=== PATIENT | female | born 1960 | race African-American/Black ===

== ENCOUNTER 2020-07-01 09:33 | Observation (INO) ==
[2020-07-01] MEDS ORDERED: ONDANSETRON INJ 2 MG/ML 2 ML VIAL IV STA (09:58)
[2020-07-01] MEDS ORDERED: SODIUM CHLORIDE 0.9% 1000ML 1,000 ML IV ONE ×2 (09:58→11:57)
[2020-07-01] MEDS ORDERED: LORazepam 1 MG/2 ML VIAL IV STA (09:58)
--- NOTE | 2020-07-01 10:02 | Emergency Department Note ---
History of Present Illness General Chief complaint: Shortness of Breath/Dyspnea Stated complaint: COVID POSITIVE SINCE MAY 23 / Time Seen by Provider: 07/01/20 09:49 History of Present Illness Provider complaint: Difficulty breathing Onset (ago): month(s) 1 Associated symptoms: + cough, + fever/chills, + nausea/vomiting (Nausea no vomiting), + shortness of breath and + weakness 5-year-old female presents emergency department for difficulty breathing. Patient states her difficulty breathing has been gone for last 1 month and she was diagnosed with COVID-19. She states that she feels like she is not getting any better. She states she feels like it is difficult to take a deep breath in. She reports mild fevers but those have improved over the last month. She reports a cough. She reports feeling nauseous. She reports feeling excessively weak. She reports she feels dehydrated. She states her had COVID-19 at the same time as her but he has made a full recovery. Patient did states she to ok a full course of Decadron and azithromycin to help with her Covid. Home Medications Medication Instructions Recorded Confirmed Type albuterol sulfate 2 puffs INH 6XD PRN #6.7 gm 05/30/20 07/01/20 Rx ascorbic acid (vitamin C) [Vitamin 25 mg PO DAILY 05/30/20 07/01/20 History C] ergocalciferol (vitamin D2) 10 mcg PO DAILY 05/30/20 07/01/20 History [Vitamin D2] multivitamin 1 cap PO DAILY 05/30/20 07/01/20 History naproxen sodium [Aleve] 220 mg PO BID PRN 05/30/20 07/01/20 History zinc 10 mg PO DAILY 05/30/20 07/01/20 History Allergies Allergy/AdvReac Type Severity Reaction Status Date / Time No Known Allergies Allergy Verified 07/01/20 10:19 Past Med/Surg History Medical History (Updated 07/01/20 @ 16:37 by Kraig Espinoza) COVID-19 05/2020 No pertinent family history Surgical History No pertinent past surgical history Family History Sister Diabetes had gestational DM, then type 1 Father , in his 70s Heart disease Mother Pacemaker Social History (Updated 07/01/20 @ 12:38 by Santos Grace) Smoking Status: Never smoker Hx Alcohol Use: No Hx Substance Use: No Preferred Language: [place] Communication Ability: Effective Tour Escort Required: Yes and No Beliefs That Will Affect Care: None marital status: Current Living Situation: Spouse current occupational status: retired current occupation: [employer] Director [employer] How many Children do You have: 4 Other Information That Helps Us Care for You: No other: originally from [place]; came to [facility] in 1986 Feels Safe at Home: Yes Safety Concerns: Feels Safe At This Time Assistive Devices: Glasses Review of Systems A total of 10 systems reviewed and were otherwise negative Physical Exam Vital Signs Vital Signs - 24 hr 07/01/20 09:41 07/01/20 09:43 07/01/20 09:45 Temperature Temperature Source Pulse Rate 108 H 108 H 109 H Pulse Rate from SpO2 Sensor 107 H Pulse Rhythm Pulse Strength Respiratory Rate 22 23 20 Respiratory Effort / Characteristics Respiratory Depth Respiratory Pattern Blood Pressure 199/103 H Blood Pressure Mean 135 Pulse Oximetry 100 100 100 Oxygen Delivery Method Sepsis Recent Fever Within 48 Hours Sepsis New/Unexplained Change in Mental Status Sepsis Action Taken by Nursing 07/01/20 09:48 07/01/20 10:00 07/01/20 10:15 Temperature 36.7 C Temperature Source Oral Pulse Rate 104 H 102 H 94 H Pulse Rate from SpO2 Sensor 104 H Pulse Rhythm Regular Regular Pulse Strength Normal Respiratory Rate 30 H 20 20 Respiratory Effort / Characteristics Spontaneous Short of Breath Non-Labored Spontaneous Respiratory Depth Shallow Respiratory Pattern Rapid/Shallow Blood Pressure 199/103 H 154/99 H Blood Pressure Mean 135 117 Pulse Oximetry 99 100 100 Oxygen Delivery Method Room Air Room Air Room Air Sepsis Recent Fever Within 48 Hours No Sepsis New/Unexplained Change in Mental Status N/A Sepsis Action Taken by Nursing Physician Notified 07/01/20 10:30 07/01/20 10:31 07/01/20 10:34 Temperature Temperature Source Pulse Rate 92 H 90 91 H Pulse Rate from SpO2 Sensor 92 H 90 89 Pulse Rhythm Pulse Strength Respiratory Rate 22 20 22 Respiratory Effort / Characteristics Respiratory Depth Respiratory Pattern Blood Pressure 176/94 H 164/96 H Blood Pressure Mean 121 118 Pulse Oximetry 100 100 100 Oxygen Delivery Method Sepsis Recent Fever Within 48 Hours Sepsis New/Unexplained Change in Mental Status Sepsis Action Taken by Nursing 07/01/20 10:35 07/01/20 10:45 07/01/20 11:00 Temperature Temperature Source Pulse Rate 87 88 86 Pulse Rate from SpO2 Sensor 89 88 Pulse Rhythm Pulse Strength Respiratory Rate 22 22 22 Respiratory Effort / Characteristics Respiratory Depth Respiratory Pattern Blood Pressure 123/91 Blood Pressure Mean 101 Pulse Oximetry 100 99 99 Oxygen Delivery Method Sepsis Recent Fever Within 48 Hours Sepsis New/Unexplained Change in Mental Status Sepsis Action Taken by Nursing 07/01/20 11:01 07/01/20 11:15 07/01/20 11:20 Temperature Temperature Source Pulse Rate 88 89 88 Pulse Rate from SpO2 Sensor Pulse Rhythm Pulse Strength Respiratory Rate 22 22 21 Respiratory Effort / Characteristics Respiratory Depth Respiratory Pattern Blood Pressure 141/75 H Blood Pressure Mean 97 Pulse Oximetry 99 99 95 Oxygen Delivery Method Sepsis Recent Fever Within 48 Hours Sepsis New/Unexplained Change in Mental Status Sepsis Action Taken by Nursing 07/01/20 11:25 07/01/20 11:30 07/01/20 11:45 Temperature Temperature Source Pulse Rate 97 H 87 Pulse Rate from SpO2 Sensor Pulse Rhythm Pulse Strength Respiratory Rate 22 17 24 Respiratory Effort / Characteristics Non-Labored Spontaneous Respiratory Depth Respiratory Pattern Blood Pressure 152/96 H Blood Pressure Mean 114 Pulse Oximetry 99 96 Oxygen Delivery Method Room Air Sepsis Recent Fever Within 48 Hours Sepsis New/Unexplained Change in Mental Status Sepsis Action Taken by Nursing 07/01/20 12:00 07/01/20 12:01 07/01/20 12:15 Temperature Temperature Source Pulse Rate 91 H 89 91 H Pulse Rate from SpO2 Sensor Pulse Rhythm Pulse Strength Respiratory Rate 23 22 22 Respiratory Effort / Characteristics Respiratory Depth Respiratory Pattern Blood Pressure 139/91 Blood Pressure Mean 107 Pulse Oximetry 96 99 99 Oxygen Delivery Method Sepsis Recent Fever Within 48 Hours Sepsis New/Unexplained Change in Mental Status Sepsis Action Taken by Nursing 07/01/20 12:30 07/01/20 13:00 Temperature Temperature Source Pulse Rate 88 90 Pulse Rate from SpO2 Sensor Pulse Rhythm Pulse Strength Respiratory Rate 22 22 Respiratory Effort / Characteristics Respiratory Depth Respiratory Pattern Blood Pressure 128/90 139/91 Blood Pressure Mean 102 107 Pulse Oximetry 99 99 Oxygen Delivery Method Sepsis Recent Fever Within 48 Hours Sepsis New/Unexplained Change in Mental Status Sepsis Action Taken by Nursing Physical Exam GENERAL: She is oriented to person, place, and time. She appears well-developed and well-nourished. She does not appear distressed. HENT: Exam performed. -Head: Normocephalic and atraumatic. -Right Ear: External ear normal. No mastoid tenderness. -Left Ear: External ear normal. No mastoid tenderness. -Mouth/Throat: The oropharynx is clear and moist. No trismus in the jaw. No dental abscesses or uvula swelling. No oropharyngeal exudate or tonsillar abscesses. EYES: Conjunctivae and EOM are normal. Pupils are equal, round, and reactive to light. Right eye exhibits no discharge. Left eye exhibits no discharge. No scleral icterus. NECK: Normal range of motion. Neck supple. No JVD present. No spinous process tenderness present. No carotid bruit present. No rigidity. No tracheal deviation and normal range of motion present. No Brudzinski's sign and no Kernig's sign noted. CV: Normal rate, regular rhythm, normal heart sounds and intact distal pulses. There is no peripheral edema. Palpable radial pulses bue. PULM/CHEST: Effort normal and breath sounds normal. No respiratory distress. No stridor. She has no wheezes. She has no rales. -Chest Wall: She exhibits no tenderness. ABD: The abdomen is soft. Bowel sounds are normal. She has no distension. No m ass is present. There is no tenderness. There is no rebound, no guarding, no Nascimento's sign and no tenderness at McBurney's point. Rovsig negative MUSC/SKEL: Normal range of motion. There is no peripheral edema, tenderness or deformity. LYMPH: No cervical adenopathy. NEURO: She is alert and oriented to person, place, and time. She has normal strength. No cranial nerve deficit or sensory deficit. Coordination and gait normal. GCS eye subscore is 4. GCS verbal subscore is 5. GCS motor subscore is 6 . Cerebellar tests wnl. SKIN: Skin is warm and dry. She is not diaphoretic. PSYCH: Patient appears very anxious and did seem to calm down when her parts person was allowed in the room. Course Course 0949: The patient was evaluated in room C5. A complete history and physical exam was performed Cardiac monitoring: An order was placed for continuous cardiac monitoring. The monitor shows a rate of 105 with sinus tachycardia rhythm 1035: Patient reports feeling better status post Ativan. 1221: Vital signs stable. Patient is reporting that she is still thirsty. Labs show leukopenia of 2.93. Patient has a blood sugar of 386. Status post 1 L fluid is and and some trouble with the patient's POC glucose was 321. Anion gap 15. Bicarb 20. Beta hydroxybutyrate 21.41. On reexamining and retalking to the patient, she reports over the last 4 weeks she has been having increasing weakness, increasing thirst, and polyuria. She reports her urine is completely clear. She reports no dysuria. It is thought that the patient's symptoms could be due to DKA. Patient has no history of diabetes. Patient be started on insulin drip and given 1 L of normal saline again with 40 mEq KCl given the patient's potassium was only 3.5. [facility] and Dr. Goetz have been notified. Administered Medications Dextrose (Dextrose 50% 50 Ml Syringe) 25 - 50 ml IV UD PRN; Protocol PRN Reason: Hypoglycemia Protocol Stop: 07/31/20 11:56 Last Admin: 07/01/20 16:33 Dose: 50 ml Documented by: Potassium Phosphate 21 mmol/ (Sodium Chloride) 507 mls @ 145 mls/hr IV ONE ONE Stop: 07/01/20 17:29 Last Admin: 07/01/20 15:15 Dose: 145 mls/hr Documented by: [id number] Discontinued Medications Lorazepam (Ativan) 1 mg in 2 mls @ 2 mls/min IV NOW STA Stop: 07/01/20 09:59 Last Admin: 07/01/20 10:17 Dose: 2 mls/min Documented by: [id number] Sodium Chloride (Nss 1000ml) 1,000 mls @ 999 mls/hr IV .Q1H1M ONE Stop: 07/01/20 10:58 Last Infusion: 07/01/20 11:17 Dose: 0 mls/hr Documented by: [id number] Admin: 07/01/20 10:16 Dose: 999 mls/hr Documented by: [id number] Sodium Chloride (Nss 1000ml) 1,000 mls @ 999 mls/hr IV .Q1H1M ONE Stop: 07/01/20 12:57 Last Infusion: 07/01/20 14:05 Dose: 0 mls/hr Documented by: [id number] Admin: 07/01/20 13:04 Dose: 999 mls/hr Documented by: [id number] Insulin Human Regular 250 (units/ Sodium Chloride) 250 mls @ 7.7 mls/hr IV .Q24H GLORIA; Protocol Stop: 07/31/20 11:59 Last Titration: 07/01/20 15:19 Dose: 4.6 units/hr, 4.6 mls/hr Documented by: [id number] Cosigned by: [id number] Titration: 07/01/20 14:51 Dose: 0 units/hr, 0 mls/hr Documented by: [id number] Cosigned by: [id number] Admin: 07/01/20 13:29 Dose: 7.7 units/hr, 7.7 mls/hr Documented by: [id number] Cosigned by: [id number] Potassium Chloride 40 meq/ (Sodium Chloride) 1,020 mls @ 125 mls/hr IV .Q8H10M GLORIA Stop: 07/31/20 12:29 Last Admin: 07/01/20 12:58 Dose: 125 mls/hr Documented by: [id number] Insulin Human Regular (Novolin-R Bolus From Bag) 7 units IV ONE ONE Stop: 07/01/20 12:31 Last Admin: 07/01/20 12:59 Dose: Not Given Documented by: [id number] Miscellaneous Information (Pharmacy Glycemic Mgmt Consult) 1 ea N/A NOW STA Stop: 07/01/20 13:18 Last Admin: 07/01/20 16:12 Dose: 1 ea Documented by: [id number] Ondansetron HCl (Ondansetron Inj 2 Mg/Ml 2 Ml Vial) 4 mg IV NOW STA Stop: 07/01/20 09:59 Last Admin: 07/01/20 10:17 Dose: 4 mg Documented by: [id number] Critical Care Time Critical Care Time: Yes Total Critical Care Time: 60 I have personally spent greater than 60 minutes of critical care time in the direct management of this patient. This includes bedside care, interpretation of diagnostic studies, and testing, discussion with consultants, patient, and family members, and other required patient management activities. This 60 minutes is in excess of all separately billable procedures. Medical Decision Making Laboratory Data Result diagrams: 07/01/20 10:18 07/01/20 10:18 Lab Results 07/01/20 07/01/20 07/01/20 Range/Units 10:18 10:18 10:18 WBC 2.93 L (4.8-10.8) K/uL RBC 4.79 (4.2-5.4) M/uL Hgb 15.1 (12.0-16.0) g/dL Hct 41.3 (37-47) % MCV 86.2 (80-100) fL MCH 31.5 (25-34) pg MCHC 36.6 H (32-36) g/dL RDW Std Deviation 40.9 (36.4-46.3) fL RDW Coeff of Peter 12.7 (11.5-14.5) % Plt Count 210 (130-400) K/uL MPV 11.0 H (7.4-10.4) fL Immature Gran % (Auto) 0.0 % Neut % (Auto) 59.4 % Lymph % (Auto) 34.5 % [place] % (Auto) 5.1 % Eos % (Auto) 0.7 % Baso % (Auto) 0.3 % Neut # (Auto) 1.74 (1.4-6.5) K/uL Lymph # (Auto) 1.01 L (1.2-3.4) K/uL [place] # (Auto) 0.15 (0.11-0.59) K/uL Eos # (Auto) 0.02 (0-0.5) K/uL Baso # (Auto) 0.01 (0-0.2) K/uL Immature Gran # (Auto) 0.00 (0.00-0.02) K/uL PT 10.4 (9.0-12.0) Seconds INR 1.0 (0.9-1.1) APTT 22.2 (21.0-31.0) Seconds PTT Ratio 0.8 D-Dimer 290 (0-500) ug/L FEU VBG pH (7.36-7.41) VBG pCO2 (38-50) mmHg VBG pO2 mmHg VBG HCO3 mmol/L VBG O2 Saturation % VBG Base Excess mEq/L Barometric Pressure mm/Hg Sodium 136 (136-145) mmol/L Potassium 3.5 (3.5-5.1) mmol/L Chloride 101 (98-107) mmol/L Carbon Dioxide 20 L (21-32) mmol/L Anion Gap 15.0 H (3-11) BUN 8 (7-18) mg/dl Creatinine 1.01 (0.6-1.2) mg/dl Est Cr Clr Drug Dosing 61.0 ml/min Est GFR ( Amer) 70.1 Est GFR (Non-Af Amer) 60.5 BUN/Creatinine Ratio 8.1 L (10-20) Glucose 386 H* (70-99) mg/dl POC Glucose (70-99) mg/dl Fasting Insulin (3-25) mU/L Lactate (0.4-2.0) mmol/L Calcium 9.4 (8.5-10.1) mg/dl Phosphorus (2.5-4.9) mg/dl Magnesium 1.8 (1.8-2.4) mg/dl Total Bilirubin 1.1 H (0.2-1) mg/dl AST 16 (15-37) U/L ALT 39 (12-78) U/L Alkaline Phosphatase 105 (45-117) U/L Troponin I < 0.015 (0-0.045) ng/ml NT-Pro-B Natriuret Pep 20 (0-900) pg/ml Total Protein 8.2 (6.4-8.2) gm/dl Albumin 4.1 (3.4-5.0) gm/dl Globulin 4.1 H (2.5-4.0) gm/dl Albumin/Globulin Ratio 1.0 (0.9-2) Beta-Hydroxybutyric Acd 21.41 H (0.2-2.81) mg/dl Procalcitonin (0-0.5) ng/ml 07/01/20 07/01/20 07/01/20 Range/Units 10:18 10:18 10:18 WBC (4.8-10.8) K/uL RBC (4.2-5.4) M/uL Hgb (12.0-16.0) g/dL Hct (37-47) % MCV (80-100) fL MCH (25-34) pg MCHC (32-36) g/dL RDW Std Deviation (36.4-46.3) fL RDW Coeff of Peter (11.5-14.5) % Plt Count (130-400) K/uL MPV (7.4-10.4) fL Immature Gran % (Auto) % Neut % (Auto) % Lymph % (Auto) % [place] % (Auto) % Eos % (Auto) % Baso % (Auto) % Neut # (Auto) (1.4-6.5) K/uL Lymph # (Auto) (1.2-3.4) K/uL [place] # (Auto) (0.11-0.59) K/uL Eos # (Auto) (0-0.5) K/uL Baso # (Auto) (0-0.2) K/uL Immature Gran # (Auto) (0.00-0.02) K/uL PT (9.0-12.0) Seconds INR (0.9-1.1) APTT (21.0-31.0) Seconds PTT Ratio D-Dimer (0-500) ug/L FEU VBG pH (7.36-7.41) VBG pCO2 (38-50) mmHg VBG pO2 mmHg VBG HCO3 mmol/L VBG O2 Saturation % VBG Base Excess mEq/L Barometric Pressure mm/Hg Sodium (136-145) mmol/L Potassium (3.5-5.1) mmol/L Chloride (98-107) mmol/L Carbon Dioxide (21-32) mmol/L Anion Gap (3-11) BUN (7-18) mg/dl Creatinine (0.6-1.2) mg/dl Est Cr Clr Drug Dosing ml/min Est GFR ( Amer) Est GFR (Non-Af Amer) BUN/Creatinine Ratio (10-20) Glucose (70-99) mg/dl POC Glucose (70-99) mg/dl Fasting Insulin 10.7 (3-25) mU/L Lactate (0.4-2.0) mmol/L Calcium (8.5-10.1) mg/dl Phosphorus 1.3 L* (2.5-4.9) mg/dl Magnesium (1.8-2.4) mg/dl Total Bilirubin (0.2-1) mg/dl AST (15-37) U/L ALT (12-78) U/L Alkaline Phosphatase (45-117) U/L Troponin I (0-0.045) ng/ml NT-Pro-B Natriuret Pep (0-900) pg/ml Total Protein (6.4-8.2) gm/dl Albumin (3.4-5.0) gm/dl Globulin (2.5-4.0) gm/dl Albumin/Globulin Ratio (0.9-2) Beta-Hydroxybutyric Acd (0.2-2.81) mg/dl Procalcitonin < 0.05 (0-0.5) ng/ml 07/01/20 07/01/20 07/01/20 Range/Units 11:46 11:49 13:13 WBC (4.8-10.8) K/uL RBC (4.2-5.4) M/uL Hgb (12.0-16.0) g/dL Hct (37-47) % MCV (80-100) fL MCH (25-34) pg MCHC (32-36) g/dL RDW Std Deviation (36.4-46.3) fL RDW Coeff of Peter (11.5-14.5) % Plt Count (130-400) K/uL MPV (7.4-10.4) fL Immature Gran % (Auto) % Neut % (Auto) % Lymph % (Auto) % [place] % (Auto) % Eos % (Auto) % Baso % (Auto) % Neut # (Auto) (1.4-6.5) K/uL Lymph # (Auto) (1.2-3.4) K/uL [place] # (Auto) (0.11-0.59) K/uL Eos # (Auto) (0-0.5) K/uL Baso # (Auto) (0-0.2) K/uL Immature Gran # (Auto) (0.00-0.02) K/uL PT (9.0-12.0) Seconds INR (0.9-1.1) APTT (21.0-31.0) Seconds PTT Ratio D-Dimer (0-500) ug/L FEU VBG pH 7.39 (7.36-7.41) VBG pCO2 40 (38-50) mmHg VBG pO2 33 mmHg VBG HCO3 24 mmol/L VBG O2 Saturation 64.0 % VBG Base Excess -0.9 mEq/L Barometric Pressure 718.8 mm/Hg Sodium (136-145) mmol/L Potassium (3.5-5.1) mmol/L Chloride (98-107) mmol/L Carbon Dioxide (21-32) mmol/L Anion Gap (3-11) BUN (7-18) mg/dl Creatinine (0.6-1.2) mg/dl Est Cr Clr Drug Dosing ml/min Est GFR ( Amer) Est GFR (Non-Af Amer) BUN/Creatinine Ratio (10-20) Glucose (70-99) mg/dl POC Glucose 321 H* (70-99) mg/dl Fasting Insulin (3-25) mU/L Lactate 1.9 (0.4-2.0) mmol/L Calcium (8.5-10.1) mg/dl Phosphorus (2.5-4.9) mg/dl Magnesium (1.8-2.4) mg/dl Total Bilirubin (0.2-1) mg/dl AST (15-37) U/L ALT (12-78) U/L Alkaline Phosphatase (45-117) U/L Troponin I (0-0.045) ng/ml NT-Pro-B Natriuret Pep (0-900) pg/ml Total Protein (6.4-8.2) gm/dl Albumin (3.4-5.0) gm/dl Globulin (2.5-4.0) gm/dl Albumin/Globulin Ratio (0.9-2) Beta-Hydroxybutyric Acd (0.2-2.81) mg/dl Procalcitonin (0-0.5) ng/ml Imaging Data Radiologist's Impression: Chest X-Ray 07/01/20 09:58 XR chest 1V portable CLINICAL HISTORY: SEPSIS COMPARISON STUDY: Chest radiograph May 30, 2020. FINDINGS: Lung volumes are normal. There is no pneumothorax or pleural effusion. No consolidation is identified. Bilateral airspace opacities shown on exam of May 30, 2020 are no longer identified. There is interstitial thickening. A nodular opacity lateral to left hilum likely reflects vessels. IMPRESSION: 1. Nonspecific mild reticulonodular interstitial thickening. 2. Resolution of bilateral lower lung opacities shown on prior exam. ACT 112: Negative or not required by law. Electronically signed by: Kobi Alvarez M.D. 07/01/2020 10:40 AM ECG Data Indication: + weakness Rate (beats per minute): 107 Rhythm: + sinus tachycardia ECG Intervals/blocks: + Normal KS and + Normal QT-c ECG ST segments: + Normal ST segments Additional Comments: QRS 74 MDM Narrative 0949: The patient was evaluated in room C5. A complete history and physical exam was performed Cardiac monitoring: An order was placed for continuous cardiac monitoring. The monitor shows a rate of 105 with sinus tachycardia rhythm 1035: Patient reports feeling better status post Ativan. 1221: Vital signs stable. Patient is reporting that she is still thirsty. Labs show leukopenia of 2.93. Patient has a blood sugar of 386. Status post 1 L fluid is and and some trouble with the patient's POC glucose was 321. Anion gap 15. Bicarb 20. Beta hydroxybutyrate 21.41. On reexamining and retalking to the patient, she reports over the last 4 weeks she has been having increasing weakness, increasing thirst, and polyuria. She reports her urine is completely clear. She reports no dysuria. It is thought that the patient's symptoms could be due to DKA. Patient has no history of diabetes. Patient be started on insulin drip and given 1 L of normal saline again with 40 mEq KCl given the patient's potassium was only 3.5. [facility] HERRERA and Dr. Goetz have been notified. Impression & Plan DKA (diabetic ketoacidoses) Discharge Plan Visit Data Chief Complaint: Shortness of Breath/Dyspnea Stated Complaint: COVID POSITIVE SINCE MAY 23 ED Provider: Kraig Espinoza Discharge Problem: DKA (diabetic ketoacidoses) Patient Disposition: Admitted As Inpatient Discharge Instructions Interventions: ED Discharge Assessment Last Done: 07/01/20 15:24 Discharge Problem: DKA (diabetic ketoacidoses) Qualifiers: Diabetes mellitus type: other specified (including PEPE) Diabetes mellitus complication detail: without coma Qualified Code(s): E13.10 - Other specified diabetes mellitus with ketoacidosis without coma
--- NOTE | 2020-07-01 10:41 | XRay Report ---
XR chest 1V portable CLINICAL HISTORY: SEPSIS COMPARISON STUDY: Chest radiograph May 30, 2020. FINDINGS: Lung volumes are normal. There is no pneumothorax or pleural effusion. No consolidation is identified. Bilateral airspace opacities shown on exam of May 30, 2020 are no longer identified. Th ere is interstitial thickening. A nodular opacity lateral to left hilum likely reflects vessels. IMPRESSION: 1. Nonspecific mild reticulonodular interstitial thickening. 2. Resolution of bilateral lower lung opacities shown on prior exam. ACT 112: Negative or not required by law. Electronically signed by: Kobi Alvarez M.D. 07/01/2020 10:40 AM
[2020-07-01 10:43] LABS: Basophils # (auto) 0.01 K/uL (0-0.2); Basophils % (auto) 0.3 %; Eosinophils # (auto) 0.02 K/uL (0-0.5); Eosinophils % (auto) 0.7 %; Hematocrit (blood only) 41.3 % (37-47); Hemoglobin 15.1 g/dL (12.0-16.0); Lymphocytes # (auto) 1.01 K/uL (1.2-3.4); Lymphocytes % (auto) 34.5 %; Mean Corpuscular Hemoglobin 31.5 pg (25-34); Mean Corpuscular Hgb Conc 36.6 g/dL (32-36); Mean Corpuscular Volume 86.2 fL (80-100); Monocytes # (auto) 0.15 K/uL (0.11-0.59); Monocytes % (auto) 5.1 %; Neutrophils # (auto) 1.74 K/uL (1.4-6.5); Neutrophils % (auto) 59.4 %; Platelet Count 210 K/uL (130-400); RDW Coefficient of Variation 12.7 % (11.5-14.5); RDW Standard Deviation 40.9 fL (36.4-46.3); Red Blood Count 4.79 M/uL (4.2-5.4); White Blood Count 2.93 K/uL (4.8-10.8)
[2020-07-01 10:59] LABS: D Dimer 290 ug/L FEU (0-500); Partial Thromboplastin Ratio 0.8; Partial Thromboplastin Time 22.2 Seconds (21.0-31.0); Prothrombin Time 10.4 Seconds (9.0-12.0)
[2020-07-01 11:27] LABS: Alanine Aminotransferase 39 U/L (12-78); Albumin Level 4.1 gm/dl (3.4-5.0); Alkaline Phosphatase 105 U/L (45-117); Aspartate Aminotransferase 16 U/L (15-37); BUN Creatinine Ratio 8.1 (10-20); Bilirubin,Total 1.1 mg/dl (0.2-1); Blood Urea Nitrogen 8 mg/dl (7-18); Calcium 9.4 mg/dl (8.5-10.1); Carbon Dioxide 20 mmol/L (21-32); Chloride 101 mmol/L (98-107); Est GFR (African American) 70.1; Est GFR (Non-African American) 60.5; Glucose 386 mg/dl (70-99); Magnesium 1.8 mg/dl (1.8-2.4); NT Pro B Type Natriuretic Pept 20 pg/ml (0-900); Potassium 3.5 mmol/L (3.5-5.1); Sodium 136 mmol/L (136-145); Total Protein 8.2 gm/dl (6.4-8.2); Troponin I < 0.015 ng/ml (0-0.045)
[2020-07-01 11:41] LABS: Beta-Hydroxybutyrate 21.41 mg/dl (0.2-2.81)
[2020-07-01 11:45] LABS: Globulin 4.1 gm/dl (2.5-4.0)
[2020-07-01] MEDS ORDERED: GLUCOSE 40% GEL 15 GM TUBE PO PRN (11:57)
[2020-07-01] MEDS ORDERED: GLUCAGON FOR INJ 1 MG VIAL SQ PRN (11:57)
[2020-07-01] MEDS ORDERED: ED DKA INSULIN DRIP ONE (11:57)
[2020-07-01] MEDS ORDERED: DEXTROSE 50% 50 ML SYRINGE IV PRN (11:57)
[2020-07-01] MEDS ORDERED: GLUCOSE 10 TABS/TUBE PO PRN (11:57)
[2020-07-01] MEDS ORDERED: CARBOHYDRATES FOR HYPOGLYCEMIA PO PRN (11:57)
[2020-07-01] MEDS ORDERED: INSULIN REGULAR 250 UNITS in SODIUM CHLORIDE 0.9% 247.5 ML IV SCH ×3 (12:00→16:30)
[2020-07-01] MEDS ORDERED: POTASSIUM CHLORIDE 40 MEQ in SODIUM CHLORIDE 0.9% 1000ML 1,000 ML IV SCH (12:30)
[2020-07-01] MEDS ORDERED: NovoLIN-R BOLUS FROM BAG IV ONE (12:30)
--- NOTE | 2020-07-01 12:43 | History & Physical Report ---
Date of Service July 01, 2020 Assessment & Plan (1) DKA (diabetic ketoacidoses): VBG is still pending but the elevated BSG & glucose, anion gap acidosis / low bicarbonate and elevated beta-hydroxybutyrate are supportive of mild DKA. Random glucose on 05/30/20 at time of COVID diagnosis was 186. Suspect she is a type 1 diabetic or type 1.5. There is now well-documented literature showing that new-onset DM is often unmasked by COVID infection. Additionally, patient had a 10-day course of dexamethasone in May which would have further worsened her blood sugars unknowingly. Plan - * start with NS with 40meq KCL/liter of fluids - run at 125cc/hr for the remainder of the day, then anticipate will be able to cut back fluid rate later tonight * regular insulin drip per protocol with DKA goal range of 150-250 * serial labs q4h including pH, BMP, etc * pharmacy glycemic consultation for assistance with DM management * will allow diet at this time given the lack of significant GI symptoms Anticipate her DKA will be resolved by late tonight. (2) Diabetes mellitus: Again suspect she is a type 1 OR mix type 1.5 diabetic. Sister had gestational DM at a young age and ultimately went on to have DM thereafter. Suspect sister has type 1 DM. See "DKA" above re: DKA management. Check HbA1C. Check insulin and c-peptide levels before insulin is given. Check KENDRA-65 ab, insulin ab, and islet cell ab; if one of these is positive this is highly supportive of dx of T1DM. TSH on 05/30/20 was normal. Continue baby asa 81mg daily. Would refer to [facility] Endo clinic post-d/c. Serial labs per DKA protocol. (3) COVID-19: With resulting pneumonia - dx on 05/30/20. Still recovering from her COVID illness as evidenced by mild leukopenia (bone marrow suppression from virus). Patient made aware of this, and will need f/u CBC in 3-4 weeks to ensure full resolution. O2 sats wnl. CXR improved from prior. Minimal chest symptoms at this time (minimal IRENE reported). Continue asa 81mg daily as this has been shown to decrease risk of complications from COVID in recovery phase. (4) Leukopenia: Likely 2nd to resolving/recovering COVID-19. Patient not contagious at this time. F/u CBC needed after discharge. (5) Hypophosphatemia: K-phos 21mmol IV x 1 phos level am (6) DVT prophylaxis: Due to recent COVID - lovenox 30mg BID. , daughter extensively updated at bedside. Questions answered. History of Present Illness Chief Complaint: weakness, polyuria, thirsty, etc Primary Care Provider: NO PCP 59yo female with COVID-19 diagnosed on 05/30/20 and ultimately had pneumonia from same presents with excessive thirst, dry mouth, emesis last evening, nausea, dyspepsia, polyuria, nocturia, 10 pounds of weight loss over the last few weeks, fluctuating appetite, insomnia, and simply feeling poorly. She received 10-day course of dexamethasone for her COVID-19 pneumonia and zpack back in May. She has had "good days and bad days" since her COVID diagnosis. Allergies Allergy/AdvReac Type Severity Reaction Status Date / Time No Known Allergies Allergy Verified 07/01/20 10:19 Home Medications Medication Instructions Recorded Confirmed Type albuterol sulfate 2 puffs INH 6XD PRN #6.7 gm 05/30/20 07/01/20 Rx ascorbic acid (vitamin C) [Vitamin 25 mg PO DAILY 05/30/20 07/01/20 History C] ergocalciferol (vitamin D2) 10 mcg PO DAILY 05/30/20 07/01/20 History [Vitamin D2] multivitamin 1 cap PO DAILY 05/30/20 07/01/20 History naproxen sodium [Aleve] 220 mg PO BID PRN 05/30/20 07/01/20 History zinc 10 mg PO DAILY 05/30/20 07/01/20 History Past Med/Surg History Medical History (Updated 07/01/20 @ 16:41 by Santos Grace) COVID-19 05/2020 Surgical History No pertinent past surgical history Family History (Updated 07/01/20 @ 16:38 by Santos Grace) Sister Diabetes had gestational DM, then type 1 DM thereafter Father , in his 70s Heart disease Mother Pacemaker Social History (Updated 07/01/20 @ 12:38 by Santos Fischer Smoking Status: Never smoker Hx Alcohol Use: No Hx Substance Use: No Preferred Language: Zambian Communication Ability: Effective Supervisor [employer] Required: Yes and No Beliefs That Will Affect Care: None marital status: Current Living Situation: Spouse current occupational status: retired current occupation: [employer] How many Children do You have: 4 Other Information That Helps Us Care for You: No other: originally from [place]; came to [facility] in 1986 Feels Safe at Home: Yes Safety Concerns: Feels Safe At This Time Assistive Devices: Glasses Review of Systems Constitutional: + fatigue, + anorexia (last 1-2 days ) and + weight loss; no fever Eyes: + worsening vision (blurry vision ) Ear, Nose, Mouth, Throat: no nasal congestion Respiratory: + dyspnea on exertion (residual dyspnea from COVID); no cough Cardiovascular: no chest pain and no edema Gastrointestinal: + abdominal pain, + nausea and + diarrhea/loose stools; no blood in stools Genitourinary: + nocturia; no dysuria Musculoskeletal: no back pain, no neck pain and no joint pain Integumentary: no rash Neurologic: no loss of sensation Psychiatric: + abnormal sleep pattern "up and down" moods Endocrine: + fatigue, + polydipsia, + polyphagia, + polyuria and + cold intolerance Hematologic / Lymphatic: no easy bleeding and no easy bruising Physical Exam Constitutional: well developed, well nourished and average body habitus; no acute distress and no altered mental status Eyes: PERRL ENMT: Ears: no TM abnormality Mouth: + dry oral mucous membranes; no oropharynx abnormality Neck: trachea midline, no thyromegaly Respiratory: normal respiratory effort, lungs clear to auscultation Cardiovascular: Rate/Rhythm: regular rate and regular rhythm Heart Sounds: normal S1 and normal S2; no murmur Vessels: posterior tibial pulses present and dorsalis pedis pulses present; no JVD Extremities: no edema Gastrointestinal (Abdomen): normal bowel sounds, soft, nontender, no hepatosplenomegaly Musculoskeletal: no cyanosis or clubbing, extremities motor strength 5/5 Skin: no rashes, warm and dry Neurologic: deep tendon reflexes 2+ bilaterally and moves all extremities; no focal motor deficits Psychiatric: A+Ox3, euthymic affect Lymphatic: no cervical lymphadenopathy Results & Data Results & Data ([facility]) Vital Signs (Past 12 Hours) Vital Signs Temp Pulse Resp BP Pulse Ox 07/01/20 11:25 22 99 07/01/20 11:15 89 22 99 07/01/20 11:01 88 22 99 07/01/20 11:00 86 22 123/91 99 07/01/20 10:45 88 22 99 07/01/20 10:35 87 22 100 07/01/20 10:34 91 H 22 164/96 H 100 07/01/20 10:31 90 20 100 07/01/20 10:30 92 H 22 176/94 H 100 07/01/20 10:15 94 H 20 100 07/01/20 10:00 102 H 20 154/99 H 100 07/01/20 09:48 36.7 C 104 H 30 H 199/103 H 99 07/01/20 09:45 109 H 20 100 07/01/20 09:43 108 H 23 100 07/01/20 09:41 108 H 22 199/103 H 100 Laboratory Results Laboratory Results - last 24 hr 07/01/20 07/01/20 07/01/20 10:18 10:18 10:18 WBC 2.93 L RBC 4.79 Hgb 15.1 Hct 41.3 MCV 86.2 MCH 31.5 MCHC 36.6 H RDW Std Deviation 40.9 RDW Coeff of Peter 12.7 Plt Count 210 MPV 11.0 H Immature Gran % (Auto) 0.0 Neut % (Auto) 59.4 Lymph % (Auto) 34.5 Shelby % (Auto) 5.1 Eos % (Auto) 0.7 Baso % (Auto) 0.3 Neut # (Auto) 1.74 Lymph # (Auto) 1.01 L Shelby # (Auto) 0.15 Eos # (Auto) 0.02 Baso # (Auto) 0.01 Immature Gran # (Auto) 0.00 PT 10.4 INR 1.0 APTT 22.2 PTT Ratio 0.8 D-Dimer 290 VBG pH VBG pCO2 VBG pO2 VBG HCO3 VBG O2 Saturation VBG Base Excess Barometric Pressure Sodium 136 Potassium 3.5 Chloride 101 Carbon Dioxide 20 L Anion Gap 15.0 H BUN 8 Creatinine 1.01 Est Cr Clr Drug Dosing 61.0 Est GFR ( Amer) 70.1 Est GFR (Non-Af Amer) 60.5 BUN/Creatinine Ratio 8.1 L Glucose 386 H* POC Glucose Estimat Average Glucose Hemoglobin A1c Fasting Insulin C-Peptide Lactate Calcium 9.4 Phosphorus Magnesium 1.8 Total Bilirubin 1.1 H AST 16 ALT 39 Alkaline Phosphatase 105 Troponin I < 0.015 NT-Pro-B Natriuret Pep 20 Total Protein 8.2 Albumin 4.1 Globulin 4.1 H Albumin/Globulin Ratio 1.0 Beta-Hydroxybutyric Acd 21.41 H Procalcitonin Urine Color Urine Appearance Urine pH Ur Specific [place] Urine Protein Urine Glucose (UA) Urine Ketones Urine Blood Urine Nitrite Urine Bilirubin Urine Urobilinogen Ur Leukocyte Esterase Islet Cell Antibody Anti-KENDRA 65 Antibody Insulin Autoantibody 07/01/20 07/01/20 07/01/20 10:18 10:18 10:18 WBC RBC Hgb Hct MCV MCH MCHC RDW Std Deviation RDW Coeff of Peter Plt Count MPV Immature Gran % (Auto) Neut % (Auto) Lymph % (Auto) Shelby % (Auto) Eos % (Auto) Baso % (Auto) Neut # (Auto) Lymph # (Auto) Shelby # (Auto) Eos # (Auto) Baso # (Auto) Immature Gran # (Auto) PT INR APTT PTT Ratio D-Dimer VBG pH VBG pCO2 VBG pO2 VBG HCO3 VBG O2 Saturation VBG Base Excess Barometric Pressure Sodium Potassium Chloride Carbon Dioxide Anion Gap BUN Creatinine Est Cr Clr Drug Dosing Est GFR ( Amer) Est GFR (Non-Af Amer) BUN/Creatinine Ratio Glucose POC Glucose Estimat Average Glucose Pending Hemoglobin A1c Pending Fasting Insulin C-Peptide Lactate Calcium Phosphorus 1.3 L* Magnesium Total Bilirubin AST ALT Alkaline Phosphatase Troponin I NT-Pro-B Natriuret Pep Total Protein Albumin Globulin Albumin/Globulin Ratio Beta-Hydroxybutyric Acd Procalcitonin < 0.05 Urine Color Urine Appearance Urine pH Ur Specific [place] Urine Protein Urine Glucose (UA) Urine Ketones Urine Blood Urine Nitrite Urine Bilirubin Urine Urobilinogen Ur Leukocyte Esterase Islet Cell Antibody Anti-KENDRA 65 Antibody Insulin Autoantibody 07/01/20 07/01/20 07/01/20 10:18 10:18 11:46 WBC RBC Hgb Hct MCV MCH MCHC RDW Std Deviation RDW Coeff of Peter Plt Count MPV Immature Gran % (Auto) Neut % (Auto) Lymph % (Auto) Shelby % (Auto) Eos % (Auto) Baso % (Auto) Neut # (Auto) Lymph # (Auto) Shelby # (Auto) Eos # (Auto) Baso # (Auto) Immature Gran # (Auto) PT INR APTT PTT Ratio D-Dimer VBG pH VBG pCO2 VBG pO2 VBG HCO3 VBG O2 Saturation VBG Base Excess Barometric Pressure Sodium Potassium Chloride Carbon Dioxide Anion Gap BUN Creatinine Est Cr Clr Drug Dosing Est GFR ( Amer) Est GFR (Non-Af Amer) BUN/Creatinine Ratio Glucose POC Glucose Estimat Average Glucose Hemoglobin A1c Fasting Insulin 10.7 C-Peptide Pending Lactate 1.9 Calcium Phosphorus Magnesium Total Bilirubin AST ALT Alkaline Phosphatase Troponin I NT-Pro-B Natriuret Pep Total Protein Albumin Globulin Albumin/Globulin Ratio Beta-Hydroxybutyric Acd Procalcitonin Urine Color Urine Appearance Urine pH Ur Specific [place] Urine Protein Urine Glucose (UA) Urine Ketones Urine Blood Urine Nitrite Urine Bilirubin Urine Urobilinogen Ur Leukocyte Esterase Islet Cell Antibody Anti-KENDRA 65 Antibody Insulin Autoantibody 07/01/20 07/01/20 07/01/20 11:49 13:13 13:25 WBC RBC Hgb Hct MCV MCH MCHC RDW Std Deviation RDW Coeff of Peter Plt Count MPV Immature Gran % (Auto) Neut % (Auto) Lymph % (Auto) Shelby % (Auto) Eos % (Auto) Baso % (Auto) Neut # (Auto) Lymph # (Auto) Shelby # (Auto) Eos # (Auto) Baso # (Auto) Immature Gran # (Auto) PT INR APTT PTT Ratio D-Dimer VBG pH 7.39 VBG pCO2 40 VBG pO2 33 VBG HCO3 24 VBG O2 Saturation 64.0 VBG Base Excess -0.9 Barometric Pressure 718.8 Sodium Potassium Chloride Carbon Dioxide Anion Gap BUN Creatinine Est Cr Clr Drug Dosing Est GFR ( Amer) Est GFR (Non-Af Amer) BUN/Creatinine Ratio Glucose POC Glucose 321 H* 315 H* Estimat Average Glucose Hemoglobin A1c Fasting Insulin C-Peptide Lactate Calcium Phosphorus Magnesium Total Bilirubin AST ALT Alkaline Phosphatase Troponin I NT-Pro-B Natriuret Pep Total Protein Albumin Globulin Albumin/Globulin Ratio Beta-Hydroxybutyric Acd Procalcitonin Urine Color Urine Appearance Urine pH Ur Specific [place] Urine Protein Urine Glucose (UA) Urine Ketones Urine Blood Urine Nitrite Urine Bilirubin Urine Urobilinogen Ur Leukocyte Esterase Islet Cell Antibody Anti-KENDRA 65 Antibody Insulin Autoantibody 07/01/20 07/01/20 07/01/20 14:41 15:45 16:15 WBC RBC Hgb Hct MCV MCH MCHC RDW Std Deviation RDW Coeff of Peter Plt Count MPV Immature Gran % (Auto) Neut % (Auto) Lymph % (Auto) Shelby % (Auto) Eos % (Auto) Baso % (Auto) Neut # (Auto) Lymph # (Auto) Shelby # (Auto) Eos # (Auto) Baso # (Auto) Immature Gran # (Auto) PT INR APTT PTT Ratio D-Dimer VBG pH VBG pCO2 VBG pO2 VBG HCO3 VBG O2 Saturation VBG Base Excess Barometric Pressure Sodium Pending Potassium Pending Chloride Pending Carbon Dioxide Pending Anion Gap Pending BUN Pending Creatinine Pending Est Cr Clr Drug Dosing Pending Est GFR ( Amer) Pending Est GFR (Non-Af Amer) Pending BUN/Creatinine Ratio Pending Glucose Pending POC Glucose 212 H Estimat Average Glucose Hemoglobin A1c Fasting Insulin C-Peptide Lactate Calcium Pending Phosphorus Pending Magnesium Pending Total Bilirubin AST ALT Alkaline Phosphatase Troponin I NT-Pro-B Natriuret Pep Total Protein Albumin Globulin Albumin/Globulin Ratio Beta-Hydroxybutyric Acd Procalcitonin Urine Color Yellow Urine Appearance Clear Urine pH 7.5 Ur Specific [place] 1.009 Urine Protein Negative Urine Glucose (UA) Negative Urine Ketones Negative Urine Blood Negative Urine Nitrite Negative Urine Bilirubin Negative Urine Urobilinogen Negative Ur Leukocyte Esterase Negative Islet Cell Antibody Anti-KENDRA 65 Antibody Insulin Autoantibody 07/01/20 07/01/20 07/01/20 16:15 16:15 16:24 WBC RBC Hgb Hct MCV MCH MCHC RDW Std Deviation RDW Coeff of Peter Plt Count MPV Immature Gran % (Auto) Neut % (Auto) Lymph % (Auto) Shelby % (Auto) Eos % (Auto) Baso % (Auto) Neut # (Auto) Lymph # (Auto) Shelby # (Auto) Eos # (Auto) Baso # (Auto) Immature Gran # (Auto) PT INR APTT PTT Ratio D-Dimer VBG pH 7.37 VBG pCO2 VBG pO2 VBG HCO3 VBG O2 Saturation VBG Base Excess Barometric Pressure Sodium Potassium Chloride Carbon Dioxide Anion Gap BUN Creatinine Est Cr Clr Drug Dosing Est GFR ( Amer) Est GFR (Non-Af Amer) BUN/Creatinine Ratio Glucose POC Glucose 66 L* Estimat Average Glucose Hemoglobin A1c Fasting Insulin C-Peptide Lactate Calcium Phosphorus Magnesium Total Bilirubin AST ALT Alkaline Phosphatase Troponin I NT-Pro-B Natriuret Pep Total Protein Albumin Globulin Albumin/Globulin Ratio Beta-Hydroxybutyric Acd Procalcitonin Urine Color Urine Appearance Urine pH Ur Specific [place] Urine Protein Urine Glucose (UA) Urine Ketones Urine Blood Urine Nitrite Urine Bilirubin Urine Urobilinogen Ur Leukocyte Esterase Islet Cell Antibody Pending Anti-KENDRA 65 Antibody Pending Insulin Autoantibody Pending 07/01/20 16:25 WBC RBC Hgb Hct MCV MCH MCHC RDW Std Deviation RDW Coeff of Peter Plt Count MPV Immature Gran % (Auto) Neut % (Auto) Lymph % (Auto) Shelby % (Auto) Eos % (Auto) Baso % (Auto) Neut # (Auto) Lymph # (Auto) Shelby # (Auto) Eos # (Auto) Baso # (Auto) Immature Gran # (Auto) PT INR APTT PTT Ratio D-Dimer VBG pH VBG pCO2 VBG pO2 VBG HCO3 VBG O2 Saturation VBG Base Excess Barometric Pressure Sodium Potassium Chloride Carbon Dioxide Anion Gap BUN Creatinine Est Cr Clr Drug Dosing Est GFR ( Amer) Est GFR (Non-Af Amer) BUN/Creatinine Ratio Glucose POC Glucose 62 L* Estimat Average Glucose Hemoglobin A1c Fasting Insulin C-Peptide Lactate Calcium Phosphorus Magnesium Total Bilirubin AST ALT Alkaline Phosphatase Troponin I NT-Pro-B Natriuret Pep Total Protein Albumin Globulin Albumin/Globulin Ratio Beta-Hydroxybutyric Acd Procalcitonin Urine Color Urine Appearance Urine pH Ur Specific [place] Urine Protein Urine Glucose (UA) Urine Ketones Urine Blood Urine Nitrite Urine Bilirubin Urine Urobilinogen Ur Leukocyte Esterase Islet Cell Antibody Anti-KENDRA 65 Antibody Insulin Autoantibody Diagnostic Findings Chest X-Ray 07/01/20 09:58 XR chest 1V portable CLINICAL HISTORY: SEPSIS COMPARISON STUDY: Chest radiograph May 30, 2020. FINDINGS: Lung volumes are normal. There is no pneumothorax or pleural effusion. No consolidation is identified. Bilateral airspace opacities shown on exam of May 30, 2020 are no longer identified. There is interstitial thickening. A n odular opacity lateral to left hilum likely reflects vessels. IMPRESSION: 1. Nonspecific mild reticulonodular interstitial thickening. 2. Resolution of bilateral lower lung opacities shown on prior exam. ACT 112: Negative or not required by law. Electronically signed by: Kobi Alvarez M.D. 07/01/2020 10:40 AM EKG - my reading - NSR, no ST changes Code Status & VTE Plan Code Status full VTE Prophylaxis Plan VTE Prophylaxis will be ordered: Yes PG Care Time/CCT Total # of Minutes Spent Total Time Spent with Patient: Total time spent is greater than 50% in coordination of care (as documented) at patient's floor/unit and/or counseling patient: Coding Level of Care Code 50049 Initial Inpt Care Lvl 3 Diagnoses DKA (diabetic ketoacidoses) E10.10 Diabetes mellitus type: type 1 Diabetes mellitus complication detail: without coma Diabetes mellitus E10.10 Diabetes mellitus type: type 1 Diabetes mellitus complication status: with ketoacidosis Diabetes mellitus complication detail: without coma COVID-19 U07.1 Leukopenia D72.819 Leukopenia type: unspecified Hypophosphatemia E83.39 DVT prophylaxis Z29.9 (1) DKA (diabetic ketoacidoses) Diabetes mellitus type: type 1 Diabetes mellitus complication detail: without coma Qualified Code(s): E10.10 - Type 1 diabetes mellitus with ketoacidosis without coma (2) Diabetes mellitus Diabetes mellitus type: type 1 Diabetes mellitus complication status: with ketoacidosis Diabetes mellitus complication detail: without coma Qualified Code(s): E10.10 - Type 1 diabetes mellitus with ketoacidosis without coma (3) Leukopenia Leukopenia type: unspecified Qualified Code(s): D72.819 - Decreased white blood cell count, unspecified
[2020-07-01] MEDS ORDERED: PHARMACY GLYCEMIC MGMT CONSULT STA (13:17)
[2020-07-01 13:23] LABS: Base Excess VBG -0.9 mEq/L; pH VBG 7.39 (7.36-7.41)
[2020-07-01] MEDS ORDERED: POTASSIUM PHOS 3 MMOL/1 ML INFUSION IV STA (13:26)
[2020-07-01] MEDS ORDERED: POTASSIUM PHOSPHATE 21 MMOL in SODIUM CHLORIDE 0.9% 500 ML IV ONE (14:00)
[2020-07-01] MEDS ORDERED: PHARMACY GLYCEMIC MGMT CONSULT PRN (15:17)
[2020-07-01] MEDS ORDERED: DKA GOAL RANGE 150-250 mg/dl ONE (15:44)
[2020-07-01] MEDS ORDERED: ACETAMINOPHEN 325 MG TAB PO PRN (15:44)
[2020-07-01] MEDS ORDERED: ALBUTEROL HFA 8 GM INHALER INH PRN (15:44)
[2020-07-01] MEDS ORDERED: ONDANSETRON INJ 2 MG/ML 2 ML VIAL IV PRN (15:44)
[2020-07-01 15:54] LABS: Appearance Urine Clear (Clear); Bilirubin Urine Negative (Negative); Blood Urine Negative (Negative); Color Urine Yellow; Glucose Urine UA Negative (Negative); Ketones Urine Negative (Negative); Leukocyte Esterase Urine Negative (Negative); Nitrite Urine Negative (Negative); Protein Urine Negative (Negative); Specific Gravity Urine 1.009 (1.000-1.030); Urobilinogen Urine Negative (Negative); pH Urine 7.5 (4.5-7.5)
[2020-07-01] MEDS ORDERED: INSULIN ASPART 100 UNITS/ML 3 ML PEN SC SCH (16:30)
[2020-07-01 16:45] LABS: BUN Creatinine Ratio 7.7 (10-20); Calcium 8.2 mg/dl (8.5-10.1); Creatinine Clr Calc Pharmacy 85.4 ml/min; Est GFR (African American) 109.1; Est GFR (Non-African American) 94.2; Magnesium 1.7 mg/dl (1.8-2.4); Potassium 3.6 mmol/L (3.5-5.1)
[2020-07-01] MEDS ORDERED: POTASSIUM CHLORIDE 40 MEQ in D5W AND NSS 1,000 ML IV SCH (16:45)
[2020-07-01] MEDS: INSULIN ASPART 100 UNITS/ML 3 ML PEN SC SCH ×2 (16:58→20:18)
[2020-07-01] MEDS: ENOXAPARIN INJ 30 MG/0.3 ML SYR SQ SCH (17:01)
[2020-07-01] MEDS ORDERED: INSULIN GLARGINE SOLOSTAR 100 UNITS/ML 3 ML PEN SC ONE (19:45)
[2020-07-01] MEDS ORDERED: MAGNESIUM SULFATE / D5W 1 GM/100 ML BAG IV ONE (20:00)
[2020-07-01] MEDS: SODIUM CHLOR 0.45% + 20MEQ KCL 20 MEQ/1,000 ML BAG IV SCH (20:05)
[2020-07-01 20:43] LABS: BUN Creatinine Ratio 8.1 (10-20); Calcium 7.7 mg/dl (8.5-10.1); Creatinine Clr Calc Pharmacy 60.4 ml/min; Est GFR (African American) 71.8; Est GFR (Non-African American) 61.9; Magnesium 1.8 mg/dl (1.8-2.4); Phosphorus 3.4 mg/dl (2.5-4.9)
[2020-07-01] MEDS: DC IV INSULIN INFUSION 1 EA DEVI SCH ×3 (21:24→23:11)
[2020-07-02] MEDS: DC IV INSULIN INFUSION 1 EA DEVI SCH ×3 (00:10→02:10)
[2020-07-02] MEDS: INSULIN ASPART 100 UNITS/ML 3 ML PEN SC SCH ×6 (00:10→21:00)
[2020-07-02] MEDS: SODIUM CHLOR 0.45% + 20MEQ KCL 20 MEQ/1,000 ML BAG IV SCH ×2 (06:02→15:59)
[2020-07-02] MEDS: ENOXAPARIN INJ 30 MG/0.3 ML SYR SQ SCH ×2 (06:02→17:30)
[2020-07-02 06:31] LABS: Estimated Average Glucose 280 mg/dl; Hemoglobin A1C 11.4 % (4.5-5.6)
--- NOTE | 2020-07-02 06:50 | Electrocardiogram Report ---
Test Reason : Blood Pressure : / mmHG Vent. Rate : 107 BPM Atrial Rate : 107 BPM P-R Int : 146 ms QRS Dur : 074 ms QT Int : 348 ms P-R-T Axes : 061 -27 049 degrees QTc Int : 464 ms Poor data quality, interpretation may be adversely affected Sinus tachycardia Possible Left atrial enlargement Left ventricular hypertrophy Abnormal ECG When compared with ECG of 30-MAY-2020 12:53, No significant change was found Confirmed by Antonio Alfonso ([id number]) on 07/02/2020 6:49:51 AM Referred By: REFERRED SELF Confirmed By:Antonio Alfonso
[2020-07-02] MEDS: ASPIRIN 81 MG ECTAB PO SCH (08:13)
[2020-07-02] MEDS: MULTIVITAMIN TAB PO SCH (08:13)
[2020-07-02] MEDS: CHOLECALCIFEROL 400 UNITS 10 MCG TAB PO SCH (08:13)
[2020-07-02] MEDS ORDERED: INSULIN GLARGINE SOLOSTAR 100 UNITS/ML 3 ML PEN SC SCH ×2 (09:00→21:00)
--- NOTE | 2020-07-02 11:21 | Pharmacy Report ---
Pharmacy Glycemic Short Note 2 - Date of Service July 02, 2020 - Glycemic Short BSG Results (Last 24 hours): 07/01/20 07/01/20 07/01/20 10:18 11:49 13:25 Glucose 386 H* POC Glucose 321 H* 315 H* 07/01/20 07/01/20 07/01/20 14:41 16:15 16:24 Glucose 77 POC Glucose 212 H 66 L* 07/01/20 07/01/20 07/01/20 16:25 16:52 18:11 Glucose POC Glucose 62 L* 197 H 246 H 07/01/20 07/01/20 07/01/20 19:01 20:00 20:18 Glucose 180 H POC Glucose 233 H 180 H 07/01/20 07/01/20 07/01/20 21:01 22:02 22:59 Glucose POC Glucose 191 H 199 H 143 H 07/02/20 07/02/20 07/02/20 00:03 02:04 04:06 Glucose POC Glucose 119 H 130 H 196 H 07/02/20 07:23 Glucose POC Glucose 198 H OUTPATIENT ANTIDIABETIC REGIMEN: * n/a * HbA1c: 11.4% (07/01/20) - new diagnosis ASSESSMENT: * IO is a 59 year old female presented to ED with complaints of excessive thirst, dry mouth, emesis, nausea, polyuria, nocturia, 10 pound weight loss over past few weeks, etc. * Found to be in DKA * AG of 15, CO2: 20 mmol/L, BS mg/dL, BHA: 21 * Insulin gtt initiated at time of admission along with IV fluids -> labs resolved last evening and patient converted to SC insulin * C-peptide ordered and pending * Fasting insulin ordered on admission: 10.7 mU/L (WNL) - patient likely still produces insulin PLAN FOR INPATIENT GLYCEMIC CONTROL: * Basal insulin * Lantus 7 units SC qAM * Lantus 0-12 units SC HS (see EHR for details) * Will plan on one-time daily dose starting tomorrow * Bolus insulin * NovoLog per scale ACHS or Q6hrs while NPO * Goal Range: Low 110 mg/dL - High 140 mg/dL * Correction Factor: 25 mg/dL/unit * Nutritional / Prandial insulin per carb ratio of 1 unit per 8 grams CHO consumed * 00,04 checks with same parameters this evening PLAN FOR DISCHARGE: * tbd * Will likely require basal/bolus insulin regimen upon discharge * Basaglar and Novolog covered by insurance
--- NOTE | 2020-07-02 19:44 | Hospitalist Progress Note ---
Date of Service July 02, 2020 Assessment & Plan (1) DKA (diabetic ketoacidoses): Anion gap is now closed Patient doing well with no other side effects Diabetic education counseling occurred with Neida Solo Patient will need outpatient endocrinology visit (2) Diabetes mellitus: Patient with no prior history of diabetes mellitus Currently on insulin glargine (Lantus) 18 units daily We will also continue with NovoLog sliding scale insulin Hemoglobin A1c greater than 11% Discussed case extensively with Neida Solo from diabetic education Will need follow-up with endocrinology. This will be coordinated through the bite diabetic education program On discharge, patient will need the followin. Basaglar KwikPen (Lantus) 2. NovoLog FlexPen for sliding scale insulin 3. Pen needles 32-gauge x5/32" 4. One Touch Verio test strips to check sugars 4 times daily 5. One Touch Delica Lancets 33 ga Patient should continue to follow with her primary care physician for full diabetic work-up and monitoring (3) Hypophosphatemia: Resolved Initial phosphorus level is 1.3 mg/Bryce This was repleted and is currently 3.4 mg/Bryce (4) COVID-19: Patient diagnosed with COVID-19 in May Does not appear to have any residual sequela Oxygenating well on room air Continue to monitor (5) Leukopenia: This could be residual from COVID-19 No evidence of infection Continue with good sugar control Follow-up CBC with primary care on discharge (6) DVT prophylaxis: Continue Lovenox 30 mg SQ every 12 hours No anticoagulation needed on discharge Admission and Anticipated Discharge Date Admission Date: July 01, 2020 Subjective Attending: Dr. Arevalo Patient seen and examined at bedside. Her DKA appears to be resolved. She most likely has diabetes mellitus which has been undiagnosed. inclusion paraeducator and with patient on at least 2 occasions when I was in to see patient. She will be started on insulin at home with outpatient follow-up. She has no complaints of nausea or vomiting. No abdominal pain. No chest pain or tightness. No visual changes. She was feeling back to her normal state of health. Review of Systems Review of Systems: All systems reviewed & are unremarkable except as noted in Subjective Physical Exam Physical Exam: GENERAL : No acute distress EYES: No icterus, gaze conjugate NOSE: No evidence of epistaxis MOUTH: No lesions or candidiasis NECK: Supple LUNGS: CTA B/L, no wheezes, rales or rhonchi HEART: Regular, rate controlled ABDOMEN: Soft, NT, ND, BS Present EXTREMITIES: No LE edema, pedal pulses intact NEURO: A&OX3 Results & Data Results & Data ([facility]) Vital Signs (Past 12 Hours) Vital Signs Temp Pulse Resp BP Pulse Ox 07/02/20 19:18 36.6 C 82 18 118/77 100 07/02/20 16:09 37.2 C 68 18 158/59 H 95 07/02/20 12:50 36.8 C 82 18 156/84 H 98 07/02/20 08:01 36.7 C 94 H 18 121/84 97 Laboratory Results 07/01/20 10:18 07/01/20 20:18 Laboratory Tests 07/01/20 10:18 Hemoglobin A1c 11.4 H Diagnostic Findings XR chest 1V portable CLINICAL HISTORY: SEPSIS COMPARISON STUDY: Chest radiograph May 30, 2020. FINDINGS: Lung volumes are normal. There is no pneumothorax or pleural effusion. No consolidation is identified. Bilateral airspace opacities shown on exam of May 30, 2020 are no longer identified. There is interstitial thickening. A nodular opacity lateral to left hilum likely reflects vessels. IMPRESSION: 1. Nonspecific mild reticulonodular interstitial thickening. 2. Resolution of bilateral lower lung opacities shown on prior exam. ACT 112: Negative or not required by law. Electronically signed by: Kobi Alvarez M.D. 07/01/2020 10:40 AM PG Care Time/CCT Total # of Minutes Spent Total Time Spent with Patient: Total time spent is greater than 50% in coordination of care (as documented) at patient's floor/unit and/or counseling patient: Coding Level of Care Code 69950 Subseq Hosp Care Lvl 2 Diagnoses DKA (diabetic ketoacidoses) E10.10 Diabetes mellitus complication detail: without coma Diabetes mellitus type: type 1 Diabetes mellitus E10.10 Diabetes mellitus type: type 1 Diabetes mellitus complication status: with ketoacidosis Diabetes mellitus complication detail: without coma Hypophosphatemia E83.39 COVID-19 U07.1 Leukopenia D72.819 Leukopenia type: unspecified DVT prophylaxis Z29.9 (1) DKA (diabetic ketoacidoses) Diabetes mellitus complication detail: without coma Diabetes mellitus type: type 1 Qualified Code(s): E10.10 - Type 1 diabetes mellitus with ketoacidosis without coma (2) Diabetes mellitus Diabetes mellitus type: type 1 Diabetes mellitus complication status: with ketoacidosis Diabetes mellitus complication detail: without coma Qualified Code(s): E10.10 - Type 1 diabetes mellitus with ketoacidosis without coma (3) Leukopenia Leukopenia type: unspecified Qualified Code(s): D72.819 - Decreased white blood cell count, unspecified
[2020-07-03] MEDS ORDERED: MELATONIN 3 MG TAB PO PRN (00:02)
[2020-07-03] MEDS ORDERED: INSULIN ASPART 100 UNITS/ML 3 ML PEN SC SCH ×3 (02:00)
[2020-07-03] MEDS ORDERED: LORazepam 1 MG/2 ML VIAL IV STA (03:16)
[2020-07-03] MEDS: ENOXAPARIN INJ 30 MG/0.3 ML SYR SQ SCH (05:57)
[2020-07-03] MEDS ORDERED: INSULIN GLARGINE SOLOSTAR 100 UNITS/ML 3 ML PEN SC SCH ×2 (09:00)
--- NOTE | 2020-07-03 09:05 | Pharmacy Report ---
Pharmacy Glycemic Short Note 2 - Date of Service July 03, 2020 - Glycemic Short BSG Results (Last 24 hours): 07/02/20 07/02/20 07/02/20 11:45 16:24 20:17 POC Glucose 186 H 147 H 133 H 07/02/20 07/03/20 07/03/20 23:10 02:59 07:32 POC Glucose 158 H 189 H 199 H OUTPATIENT ANTIDIABETIC REGIMEN: * n/a * HbA1c: 11.4% (07/01/20) - new diagnosis ASSESSMENT: 07/03: * BSGs much improved yesterday, 198, 186, 147, and 133 mg/dL * Received 37 units of insulin (14 units of basal, 23 units of prandial/correctional) * Will increase Lantus by ~20% today and give it all this morning, as patient will likely be discharged with a once daily regimen of Lantus * Initial concern for T1/1.5DM given possible family hx, but c-peptide and fasting insulin levels both normal making this unlikely 07/02: * IO is a 59 year old female presented to ED with complaints of excessive thirst, dry mouth, emesis, nausea, polyuria, nocturia, 10 pound weight loss over past few weeks, etc. * Found to be in DKA * AG of 15, CO2: 20 mmol/L, BS mg/dL, BHA: 21 * Insulin gtt initiated at time of admission along with IV fluids -> labs resolved last evening and patient converted to SC insulin * C-peptide ordered and pending * Fasting insulin ordered on admission: 10.7 mU/L (WNL) - patient likely still produces insulin PLAN FOR INPATIENT GLYCEMIC CONTROL: * Basal insulin - increase by ~20% * Lantus 18 units SC daily * Bolus insulin - tighten carb ratio * NovoLog per scale ACHS or Q6hrs while NPO * Goal Range: Low 110 mg/dL - High 140 mg/dL * Correction Factor: 25 mg/dL/unit * Nutritional / Prandial insulin per carb ratio of 1 unit per 7 grams CHO consumed PLAN FOR DISCHARGE: * Patient with new diagnosis of diabetes mellitus (HbA1c: 11.4%) * Since A1c is greater than or equal to 10% consider triple therapy with metformin + basal insulin + (GLP1-RA OR prandial insulin). May need to con tinue additional antidiabetic agent based on patient specific factors (efficacy, hypo risk, weight gain/loss, side effects, cost) * Metformin XR 500mg PO daily with evening meal. Typically the XR formulation of metformin is better tolerated than the immediate release formulation. Continue to titrate metformin dosing upwards as recommended. Dosage increases should be made in increments of 500 mg weekly, up to 2,000 mg/day PO, given in divided doses. (B12 supplementation may be necessary with mcfp metformin) * At this point, it maybe be reasonable to discharge with Basaglar 15 units SC daily, Novolog 5 units TIDM (reduced from current inpatient needs due to addition of metformin) * ----Basaglar and Novolog covered by insurance * Will continue to follow insulin needs and adjust recommendations as necessary * Support Patient Self-Management * Healthy Lifestyle (diet, exercise, and smoking cessation) * Disease self-management (SMBG) * Prevention of complications (BP, Lipid goals, Immunizations) * Consider outpatient Diabetes Self-Management Education & Support * Most patients on multiple-dose insulin (MDI) should SMBG * Prior to meals and snacks * At bedtime * Prior to exercise * When they suspect low blood glucose * After treating low blood glucose until they are normoglycemic * Prior to critical tasks such as driving * Occasionally postprandially * Ensure prompt outpatient follow-up for further diabetes management
[2020-07-03] MEDS: ASPIRIN 81 MG ECTAB PO SCH (09:18)
[2020-07-03] MEDS: CHOLECALCIFEROL 400 UNITS 10 MCG TAB PO SCH (09:19)
[2020-07-03] MEDS: MULTIVITAMIN TAB PO SCH (09:19)
[2020-07-03] MEDS: INSULIN ASPART 100 UNITS/ML 3 ML PEN SC SCH ×2 (09:22→12:28)
--- NOTE | 2020-07-05 23:19 | Discharge Summary ---
Date of Service July 03, 2020 Admission HPI Per Admitting Provider 59yo female with COVID-19 diagnosed on 05/30/20 and ultimately had pneumonia from same presents with excessive thirst, dry mouth, emesis last evening, nausea, dyspepsia, polyuria, nocturia, 10 pounds of weight loss over the last few weeks, fluctuating appetite, insomnia, and simply feeling poorly. She received 10-day course of dexamethasone for her COVID-19 pneumonia and zpack back in May. She has had "good days and bad days" since her COVID diagnosis. Principal Diagnosis Mild DKA, new diagnosis of Diabetes, type not determined at this time Discharge Exam Constitutional WD/WN, vitals as above Neck trachea midline, no thyromegaly Respiratory normal respiratory effort, lungs clear to auscultation Cardiovascular RRR, no murmur, no edema Gastrointestinal (Abdomen) normal bowel sounds, soft, nontender, no hepatosplenomegaly Musculoskeletal no cyanosis or clubbing, extremities motor strength 5/5 Skin no rashes, warm and dry Neurologic patellar DTR's 2+ bilat, sensation intact and PERRL, EOMI, accommodation nl, no face palsy, no dysarthria Psychiatric Orientation: alert and oriented x 3 Affect: + anxious affect Lymphatic no cervical or axillary lymphadenopathy Discharge Data Allergies Allergy/AdvReac Type Severity Reaction Status Date / Time No Known Allergies Allergy Verified 07/05/20 13:04 Consultations 07/01/20 11:57 ED Decision to Admit Stat Diabetes Follow up Diabetes Follow-up Needed for HgbA1c >9%,Newly Diagnosed Diabetes Hospital Course (1) DKA (diabetic ketoacidoses): elevated BSG & glucose, anion gap acidosis / low bicarbonate and elevated beta-hydroxybutyrate are supportive of mild DKA. Suspect she is a type 1 diabetic or type 1.5. There is now well-documented literature showing that new-onset DM is often unmasked by COVID infection. patient admits that in the past two months she has not been exercising, she has been drinking a lot of drinks high in sugar her diet has not been typical, probably more carbs, as she has been trying to give herself energy to fight off COVID which was in May plus she took Decadron for 10 days we discussed that her HbA1c certainly could be higher due to this, probably not a true reflection of actual sugars treated DKA with typical course of IV fluids and insulin infusion once the gap closed she was transitioned to basal bolus insulin regimen sugars better controlled the past 24 hours, ready for discharge (2) Diabetes mellitus: unsure of type, this is new diagnosis at age 59 the patient is healthy, fit, no obesity she admits to taking Decadron for 10 days, eating more carbs when sick with COVID, could raise HbA1c a little more than expected Sister had gestational DM at a young age and ultimately went on to have DM thereafter. Suspect sister has type 1 DM. KENDRA-65 ab, insulin ab, and islet cell ab all ordered, results pending follow up with endocrinology for results and recommendations discharge plan: patient met with consumer educator several times, numerous questions and concerns addressed DM educator plans to call her after discharge to make sure she is doing well will send home on Basaglar 15 units every morning, Novolog flex pen 5 units at meal time Metformin ER 500mg in evening, after one week can increase to 1000mg ER educated on hypoglycemic symptoms and need to check sugar if she has those symptoms provided with meter, lancets, pen needles, test strips knows to check her sugar 4x a day will follow low carb diet and get exercise (3) COVID-19: never had hypoxia but was treated with dexamethasone 6mg PO daily x 10 days never hospitalized CXR clear on admission Minimal chest symptoms at this time (minimal IRENE reported). Continue asa 81mg daily as this has been shown to decrease risk of complications from COVID in recovery phase. (4) Leukopenia: Likely 2nd to resolving/recovering COVID-19. Patient not contagious at this time. F/u CBC needed after discharge, several weeks (5) Hypophosphatemia: resolved after IV replacement Total Time Total Time Spent Total Time Spent (In Minutes): 45 Total Time Includes: Examination of the Patient, Discharge Planning, Medication Reconciliation and Communication With Other Providers (consumer educator and Timur REVELES) Discharge Plan Discharge Items Patient Disposition: Home - Self-Care Reason For Visit: DKA, NEW ONSET DM Discharge Diagnosis: DM type II, new diagnosis Diabetic ketoacidosis, resolved with insulin drip Condition on Discharge: Good Goals: work on diabetes management Activity: Resume your previous activity Driving/Machine Use: No limitations Weightbearing: Full weightbearing Non-emergency contact: Primary Care Provider Call non-emergency contact if: you have any medication questions Follow-up/Referrals: Mitesh Velásquez MD [Physician] - 07/05/20 1:00 pm (Please follow up with Hammad Kat PA-C (Dr. Velásquez) on 07/05/20 at 1:00 pm. Please arrive to the office at 12:45 pm for your appointment. If you are unable to keep this appointment, please call the office to reschedule at [phone].) Santos Ramos MD [Physician] - 07/12/20 5:10 pm (Please follow up with BRAD Olsen (Dr. Ramos) on 07/12/20 at 5:10 pm. Please arrive to the office at 4:55 pm for your appointment. If you are unable to keep this appointment, please call the office to reschedule at [phone].) Diet: Carb Consistent or DM2 Addtl Attending Provider Instructions: Medications: - BASAGLAR: 15 units every morning, this is long acting insulin, mimics what your pancreas makes - NOVOLOG FLEXPEN: take 5 units at meal time with each meal, this dose may change based on your blood sugar levels and what you eat - METFORMIN EXT RELEASE: 500mg in the evening, after two weeks can increase to 1000mg (2 tablets) Diabetes type II, new diagnosis, presented with diabetic ketoacidosis treated with insulin drip and converted to basal insulin and bolus insulin your Hemoglobin A1c is 11.4%, this is quite high, suggests an average sugar of 280 over the past three months target HbA1c is less than 7.5%, this can be achieved by using Metformin, Basaglar and Novolog insulin Metformin will work on your liver to decrease the amount of glucose released from glycogen stores, initial dose is 500mg and then increase to 1000mg after two weeks Basaglar insulin 15 units every morning, this mimics the basal rate insulin that your pancreas makes Novolog Flexpen is for insulin coverage with meals, take 5 units at meal time referral made for endocrinology, they will help manage the diabetes ocean transportation intermediary they may recommend a GLP1 inhibitor such as Trulicity to better control sugars as well management of diabetes is not just medications, dietary choices and exercise are equally important when you eat a meal, a good rule of thumb is divide plate into 4ths, 1/4 is carbohydrates, 1/4 is protein, 1/2 is vegetables try to limit complex carbs like pastas, rice, limit sweets regular exercise 4x a week for 30 minutes at a time over the next several weeks/months you will learn how to manage your diabetes by checking your sugars and recording your results recommend checking 4 times a day for the first several weeks, would check fasting sugar in the morning, prior to lunch, prior to dinner and prior to bed be aware of hypoglycemic symptoms such as feeling light headed, weak, sweaty, nauseated -- check your sugar if you feel this way, if your sugar is less than 70 then drink orange juice, eat crackers with peanut butter or consume any other type of simple sugar to raise glucose above 100 in general, your sugars are going to be better controlled now since prior to this admission you were not taking anything that being said, you will likely have to adjust insulin regimens under supervision of your physician that is why it is important to check sugars 4x a day and record the results, if possible, keep a diary of what you eat and how much as this can help your physician better adjust insulin regimen Pending Studies at Discharge: No Stand-Alone Forms: [facility] [address], Smoking Cessation Medications and DC Order Prescriptions: New Basaglar KwikPen U-100 Insulin 100 unit/mL (3 mL) insulin pen 15 unit subcut DAILY Qty: 15 RF: 3 insulin aspart U-100 [Novolog Flexpen U-100 Insulin] 100 unit/mL (3 mL) insulin pen 5 unit subcut TIDM 30 Days Qty: 1.5 RF: 3 (DME) OneTouch Verio test strips Strip See Rx Instructions .ROUTE .MEDSUPPLY Qty: 100 RF: 3 (DME) lancets [OneTouch Delica Lancets] 33 gauge misc See Rx Instructions .ROUTE .MEDSUPPLY Qty: 100 RF: 0 Continued ergocalciferol (vitamin D2) 10 mcg (400 unit) Tablet 10 mcg PO DAILY RF: 0 naproxen sodium [Aleve] 220 mg Tablet 220 mg PO BID PRN (Reason: Pain) RF: 0 multivitamin Capsule 1 cap PO DAILY RF: 0 zinc 10 mg Tablet 10 mg PO DAILY RF: 0 ascorbic acid (vitamin C) 25 mg Tablet 25 mg PO DAILY RF: 0 albuterol sulfate 90 mcg/actuation HFA aerosol inhaler 2 puffs INH 6XD PRN (Reason: shortness of breath or wheezing) Qty: 6.7 RF: 0 No Action (DME) pen needle, diabetic 32 gauge x 5/32" needle See Rx Instructions .ROUTE .MEDSUPPLY RF: 0 Discharge Orders: Discharge Order (Routine); Ordered 07/03/20 Ordered By: Oliverio Arevalo Admission Data Admit Date/Time: 07/01/20 13:20 Attending Provider: Oliverio Arevalo Admit Provider: Santos Grace Primary Care Provider: PCP,NO Other Interventions: Discharge Summary Assessment (RN) Last Done: 07/03/20 13:24 Coding Level of Care Code D/C Day Management >30 mins Diagnoses DKA (diabetic ketoacidoses) E10.10 Diabetes mellitus complication detail: without coma Diabetes mellitus type: type 1 Diabetes mellitus E10.10 Diabetes mellitus complication detail: without coma Diabetes mellitus complication status: with ketoacidosis Diabetes mellitus type: type 1 COVID-19 U07.1 Leukopenia D72.819 Leukopenia type: unspecified Hypophosphatemia E83.39
[2020-07-07 20:06] LABS: Glutamic Acid Decarboxylase 65 <5 IU/mL (<5)
== END 2020-07-03 14:31 | disposition home or self-care (01) ==
LOC: ED 09:33 → INTOOBSV 13:20 → SUATTDRO 13:20 → 2S 13:20

== ENCOUNTER 2023-11-17 00:52 | Inpatient (IN) ==
[2023-11-17] MEDS: LORazepam 1 MG/1 ML SYR ED Inj Use IV STA (01:54)
[2023-11-17] MEDS: SODIUM CHLORIDE 0.9% 1,000 ML IV SCH (02:04)
--- NOTE | 2023-11-17 02:06 | Emergency Department Note ---
Impression & Plan Insomnia, Anxiety, Dehydration, Hypokalemia ED Provider Note ED Provider Note NAME: BERTHA POLANCO AGE:63 SEX: Female : 1960 ARRIVES VIA: Private vehicle INFORMANT: Patient, family ED PROVIDER(s): Sofie Holland DO CHIEF COMPLAINT: Insomnia, increased anxiety HPI: This is a 63-year-old female who presents emergency department due to concern for insomnia and increased anxiety. Family bedside states this is similar to prior episode in she was evaluated in the ER last week with similar symptoms. They states she had been started on new medication for anxiety but they also thought would help with sleep approximately 1 month ago however the course of the last week patient has refused to take it which is led to worsening anxiety and difficulty sleeping. estimates she has not slept in several days. Patient here will answer a few simple questions but seems repetitive and not fully understanding of some of the questions. She is repetitive in her answers. Family notes that is the anniversary of her son's . denies noting any recent fevers or chills or infection. He states she has had a decreased appetite additionally, and has not had much to eat or drink over the course of the last week. PAST MEDICAL HISTORY:See Below PAST SURGICAL HISTORY:See Below FAMILY HISTORY:See Below SOCIAL HISTORY:See Below HOME MEDICATIONS:See Below ALLERGIES:See Below VITALS:See Below PHYSICAL EXAMINATION: GENERAL: alert, anxious appearing, well nourished, no distress, non-toxic EYE EXAM: normal conjunctiva, PERRL and EOM's grossly intact OROPHARYNX: no exudate, no erythema, lips, buccal mucosa, and tongue normal and mucous membranes are dry NECK: supple, no nuchal rigidity, no adenopathy, non-tender LUNGS: Clear to auscultation. Normal chest wall mechanics, no w/r/r, tachypneic HEART: no murmurs, S1 normal and S2 normal ABDOMEN: abdomen soft, non-tender, normo-active bowel sounds, no masses, no rebound or guarding. SKIN: no rashes, petechiae, orbruising UPPER EXTREMITIES: upper extremities are grossly normal. FROM, nml pulses b/l. LOWER EXTREMITIES: No pitting edema. FROM, nml pulses b/l. NEURO EXAM: anxious, repetitive, cannot answer questions in full sentences, cranial nerves II-XII grossly intact, no facial droop,nogross weakness of arms, no gross weakness of legs. Gross sensation intact. No ataxia. Vital Signs: reviewed and remarkable Differential Diagnosis: Anxiety, depression, noncompliance, medication ADR, insomnia, dehydration, as well as others were considered MEDICAL DECISION MAKING: This is a 63 yo female who presents to the ER with family due to concern for insomnia and decreased oral intake as well as increased anxiety. Patient with similar episode recently and came to the ER. Labs drawn and sent, IV established, EKG performed and interpreted at bedside, and patient placed on telemetry. Patient appeared clinically dehydration and was given IVF and IV ativan to help with her anxiety. She rested for several hours and upon waking was able to say full sentences but still seemed confused. Case mgmt had gone to bedside as well to discuss her anxiety with her and had a difficulty time having a conversation due to her confusion. No stroke like deficits noted, she denied ruiz, dizziness, cp, sob, or abdominal pain. Due to concern for confusion she was sent for CT head and additional labs added. Case discussed with the hospitalist team for additional evaluation and mgmt. Consultation(s): 0735: Discussed with residential case managerKaterina. She will evaluate the patient at bedside. 0815: Patient now awake, able to make eye contact and form full sentences however is still confused. Patient goes off on tangents talking about [employer] and [employer] and finding the remote control and then talks about police. She denies SI or HI. She states her went to work as he works at [employer]. 0832: Discussed with Dr. [place], [place] hospitalist team, for additional evaluation and mgmt. ER Treatment Provided: See below Diagnostics Interpreted By Me: -ECG: Sinus tachycardia at 106, normal axis, normal intervals, no acute ST/T wave changes -Cardiac Monitoring: An order was placed for continuous cardiac monitoring. The monitor shows a rate of 80 with normal sinus rhythm. -Laboratory studies: As stated above and show below. Triage Nursing Note Reviewed Prior/Outside Records Reviewed Past Med/Surg History Problem List (Updated 11/17/23 @ 17:00 by Marcelo Mccullough MD) Poor fluid intake MDD (major depressive disorder), recurrent episode, moderate Generalized anxiety disorder with panic attacks Hypokalemia (Acute) Dehydration (Acute) Anxiety (Acute) Insomnia (Acute) Colon cancer screening Anxiety and depression Diabetes type 2, controlled Medical History Prediabetes NO MEDS History of depression History of anxiety History of COVID-19 05/2020>RESOLVED Surgical History History of tooth extraction Family History Sister Diabetes had gestational DM, then type 1 DM thereafter Father , in his 70s Heart disease Mother Pacemaker Other No family history of adverse response to anesthesia Social History Smoking Status: Never smoker Second Hand Exposure: No; Hx Alcohol Use: No Hx Substance Use: No Preferred Language: Turkmen Communication Ability: Effective Director Of Instructional Technology Required: No Beliefs That Will Affect Care: None marital status: Current Living Situation: Spouse current occupational status: 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 How many Children do You have: 4 other: originally from [place]; came to [facility] in 1986 Feels Safe at Home: Yes Assistive Devices: None Allergies Allergies Allergy/AdvReac Type Severity Reaction Status Date / Time No Known Allergies Allergy Verified 11/17/23 10:25 Home Meds Home Medications Medication Instructions Recorded Confirmed blood sugar diagnostic (OneTouch 01/15/21 11/09/23 Verio test strips) blood-glucose meter,continuous 01/15/21 11/09/23 (Dexcom G6 Bobbin Painter) clonazepam 0.5 mg tablet 0.5 mg PO DAILY PRN Anxiety 11/09/23 11/17/23 mirtazapine 7.5 mg tablet 7.5 mg PO HS 11/09/23 11/17/23 quetiapine 25 mg tablet 25 mg PO HS 11/09/23 11/17/23 trazodone 50 mg tablet 100 mg PO HS PRN Sleep 11/09/23 11/17/23 Previous Rx's Medication Instructions Recorded blood-glucose sensor (Dexcom G6 #9 ea 02/11/21 Sensor device) blood-glucose transmitter (Dexcom #1 ea 02/11/21 G6 Transmitter device) Results & Data (ED) Vital Signs Vital Signs - 24 hr 11/17/23 00:58 11/17/23 01:49 11/17/23 01:51 Temperature 36.5 C Temperature Source Temporal Artery Scan Pulse Rate 121 H 104 H Pulse Rate [Apical] Pulse Rate from SpO2 Sensor Pulse Rhythm [Apical] Pulse Strength [Apical] Respiratory Rate 28 H Respiratory Effort / Characteristics Non-Labored Spontaneous Respiratory Depth Normal Respiratory Pattern Blood Pressure 155/90 H 173/97 H Blood Pressure [Left Arm] Blood Pressure Mean 111 120 Blood Pressure Mean [Left Arm] Blood Pressure Position [Left Arm] Pulse Oximetry 98 Oxygen Delivery Method Room Air Sepsis Recent Fever Within 48 Hours No Sepsis New/Unexplained Change in Mental Status N/A Sepsis Action Taken by Nursing No Action Required 11/17/23 02:00 11/17/23 02:16 11/17/23 03:09 Temperature Temperature Source Pulse Rate 99 H 84 Pulse Rate [Apical] 90 Pulse Rate from SpO2 Sensor 98 H 83 Pulse Rhythm [Apical] Regular Pulse Strength [Apical] Normal Respiratory Rate 23 27 H 15 Respiratory Effort / Characteristics Non-Labored Spontaneous Respiratory Depth Normal Respiratory Pattern Regular Blood Pressure 159/86 H 134/74 Blood Pressure [Left Arm] 159/86 H Blood Pressure Mean 110 94 Blood Pressure Mean [Left Arm] 110 Blood Pressure Position [Left Arm] Pulse Oximetry 97 97 92 Oxygen Delivery Method Room Air Sepsis Recent Fever Within 48 Hours Sepsis New/Unexplained Change in Mental Status Sepsis Action Taken by Nursing 11/17/23 03:33 11/17/23 05:00 11/17/23 05:52 Temperature Temperature Source Pulse Rate 81 89 79 Pulse Rate [Apical] Pulse Rate from SpO2 Sensor 81 88 Pulse Rhythm [Apical] Pulse Strength [Apical] Respiratory Rate 16 19 Respiratory Effort / Characteristics Respiratory Depth Respiratory Pattern Blood Pressure 116/67 155/84 H Blood Pressure [Left Arm] Blood Pressure Mean 83 107 Blood Pressure Mean [Left Arm] Blood Pressure Position [Left Arm] Pulse Oximetry 95 98 Oxygen Delivery Method Sepsis Recent Fever Within 48 Hours Sepsis New/Unexplained Change in Mental Status Sepsis Action Taken by Nursing 11/17/23 06:03 11/17/23 07:00 Temperature Temperature Source Pulse Rate 79 Pulse Rate [Apical] 84 Pulse Rate from SpO2 Sensor 80 Pulse Rhythm [Apical] Pulse Strength [Apical] Respiratory Rate 18 17 Respiratory Effort / Characteristics Non-Labored Spontaneous Respiratory Depth Normal Respiratory Pattern Blood Pressure 141/88 H Blood Pressure [Left Arm] 145/81 H Blood Pressure Mean 105 Blood Pressure Mean [Left Arm] 102 Blood Pressure Position [Left Arm] Lying Pulse Oximetry 100 100 Oxygen Delivery Method Room Air Sepsis Recent Fever Within 48 Hours Sepsis New/Unexplained Change in Mental Status Sepsis Action Taken by Nursing Laboratory Data 11/17/23 02:13 11/17/23 02:13 Lab Results 11/17/23 11/17/23 Range/Units 02:13 08:40 WBC 4.96 (4.8-10.8) K/ul RBC 4.38 (4.20-5.40) M/uL Hgb 13.4 (12.0-16.0) g/dl Hct 40.0 (37.0-47.0) % MCV 91.3 (80.0-100.0) fL MCH 30.6 (25.0-34.0) pg MCHC 33.5 (32.0-36.0) g/dL RDW Std Deviation 42.3 (36.4-46.3) fL RDW Coeff of Peter 12.8 (11.5-14.5) % Plt Count 205 (130-400) K/uL MPV 9.9 (9.4-12.4) fL Immature Gran % (Auto) 0.2 % Neut % (Auto) 77.0 % Lymph % (Auto) 14.9 % Schley % (Auto) 7.5 % Eos % (Auto) 0.2 % Baso % (Auto) 0.2 % Neut # (Auto) 3.82 (1.40-6.50) K/uL Lymph # (Auto) 0.74 L (1.20-3.40) K/uL Schley # (Auto) 0.37 (0.11-0.59) K/uL Eos # (Auto) 0.01 (0.00-0.50) K/uL Baso # (Auto) 0.01 (0.00-0.20) K/uL Immature Gran # (Auto) 0.01 (0.01-0.20) K/uL Sodium 138 (136-145) mmol/L Potassium 3.2 L (3.5-5.1) mmol/L Chloride 103 (98-107) mmol/L Carbon Dioxide 26 (21-32) mmol/L Anion Gap 9 (3-11) BUN 13 (6-23) mg/dl Creatinine 1.01 (0.6-1.2) mg/dl Est Cr Clr Drug Dosing Not Reportable Est GFR ( Amer) 68.1 ml/min Est GFR (Non-Af Amer) 58.8 ml/min BUN/Creatinine Ratio 12.9 (10-20) Glucose 134 H (70-99(Fasting)) mg/dl Calcium 9.4 (8.6-10.3) mg/dl Magnesium 2.0 (1.7-2.4) mg/dl Total Bilirubin 1.2 H (0.2-1.0) mg/dl AST 71 H (13-39) U/L ALT 55 H (7-52) U/L Alkaline Phosphatase 46 (34-104) U/L Troponin I High Sens 11.6 (0-14) pg/ml Total Protein 7.1 (6.0-8.3) gm/dl Albumin 4.2 (3.4-5.0) gm/dl Globulin 2.9 (2.5-4.0) gm/dl Albumin/Globulin Ratio 1.4 (0.9-2) Lipase 17 (11-82) U/L TSH 1.727 (0.300-4.500) uIu/ml Salicylates < 3.0 L (3.0-30) mg/dl Acetaminophen < 3 L (10-30) ug/ml Ethyl Alcohol mg/dL < 10.0 (<10.0) mg/dl Administered Medications Lorazepam (Lorazepam 1 Mg Tab) 1 mg PO Q6H PRN PRN Reason: Anxiety/Agitation Stop: 12/17/23 17:07 Last Admin: 11/18/23 04:37 Dose: 1 mg Documented By: CAROL Melatonin (Melatonin 3 Mg Tab) 6 mg PO [facility] Stop: 12/18/23 20:59 Last Admin: 11/18/23 21:29 Dose: 6 mg Documented By: MIKEY Mirtazapine (Mirtazapine Tab 15 Mg Tab) 7.5 mg PO [facility] Stop: 12/17/23 20:59 Last Admin: 11/18/23 21:30 Dose: 7.5 mg Documented By: Admin: 11/17/23 21:52 Dose: 7.5 mg Documented By: CAROL Quetiapine Fumarate (Quetiapine Fumarate 25 Mg Tablet) 50 mg PO [facility] Stop: 12/17/23 20:59 Last Admin: 11/18/23 21:31 Dose: 50 mg Documented By: Admin: 11/17/23 21:51 Dose: 50 mg Documented By: PAULOC Sertraline HCl (Sertraline Hcl 50 Mg Tablet) 50 mg PO QAM GLORIA Stop: 12/18/23 08:59 Last Admin: 11/18/23 10:46 Dose: 50 mg Documented By: NMS Discontinued Medications Sodium Chloride (Nss) 1,000 mls @ 250 mls/hr IV .Q4H GLORIA Stop: 12/17/23 01:44 Last Infusion: 11/17/23 17:29 Dose: Infused Documented By: Admin: 11/17/23 15:35 Dose: 250 mls/hr Documented By: Infusion: 11/17/23 14:31 Dose: Infused Documented By: Admin: 11/17/23 10:31 Dose: 250 mls/hr Documented By: Infusion: 11/17/23 10:04 Dose: Infused Documented By: Admin: 11/17/23 06:04 Dose: 250 mls/hr Documented By: Infusion: 11/17/23 06:04 Dose: Infused Documented By: Admin: 11/17/23 02:04 Dose: 250 mls/hr Documented By: SIVA Lorazepam (Lorazepam 1 Mg/1 Ml Syr Ed Inj Use) 1 mg IV ONE STA Stop: 11/17/23 01:35 Last Admin: 11/17/23 01:54 Dose: 1 mg Documented By: SIVA Potassium Chloride (Potassium Chloride Crtab 20 Meq Tabcr) 40 meq PO NOW STA Stop: 11/17/23 11:05 Last Admin: 11/17/23 11:51 Dose: 40 meq Documented By: CC Discharge Plan Visit Data Chief Complaint: Illness Stated Complaint: NOT EATEN,NOT TAKEN MEDICATION ED Provider: Sofie Holland Discharge Problem: Insomnia, Anxiety, Dehydration, Hypokalemia Patient Disposition: Admitted As Inpatient Discharge Instructions Interventions: ED Discharge Assessment Last Done: 11/17/23 11:15
[2023-11-17 02:51] LABS: Basophils # (auto) 0.01 K/uL (0.00-0.20); Basophils % (auto) 0.2 %; Eosinophils # (auto) 0.01 K/uL (0.00-0.50); Eosinophils % (auto) 0.2 %; Hemoglobin 13.4 g/dl (12.0-16.0); Immature Granulocytes # (auto) 0.01 K/uL (0.01-0.20); Immature Granulocytes % (auto) 0.2 %; Lymphocytes # (auto) 0.74 K/uL (1.20-3.40); Lymphocytes % (auto) 14.9 %; Mean Corpuscular Hemoglobin 30.6 pg (25.0-34.0); Mean Corpuscular Hgb Conc 33.5 g/dL (32.0-36.0); Mean Corpuscular Volume 91.3 fL (80.0-100.0); Mean Platelet Volume 9.9 fL (9.4-12.4); Monocytes # (auto) 0.37 K/uL (0.11-0.59); Monocytes % (auto) 7.5 %; Neutrophils # (auto) 3.82 K/uL (1.40-6.50); Platelet Count 205 K/uL (130-400); RDW Coefficient of Variation 12.8 % (11.5-14.5); RDW Standard Deviation 42.3 fL (36.4-46.3); Red Blood Count 4.38 M/uL (4.20-5.40); White Blood Count 4.96 K/ul (4.8-10.8)
[2023-11-17 03:02] LABS: Alanine Aminotransferase 55 U/L (7-52); Albumin Globulin Ratio 1.4 (0.9-2); Albumin Level 4.2 gm/dl (3.4-5.0); Alkaline Phosphatase 46 U/L (34-104); Anion Gap 9 (3-11); Aspartate Aminotransferase 71 U/L (13-39); BUN Creatinine Ratio 12.9 (10-20); Bilirubin,Total 1.2 mg/dl (0.2-1.0); Blood Urea Nitrogen 13 mg/dl (6-23); Calcium 9.4 mg/dl (8.6-10.3); Carbon Dioxide 26 mmol/L (21-32); Chloride 103 mmol/L (98-107); Est GFR (African American) 68.1 ml/min; Est GFR (Non-African American) 58.8 ml/min; Globulin 2.9 gm/dl (2.5-4.0); Glucose 134 mg/dl (70-99(Fasting)); Lipase 17 U/L (11-82); Potassium 3.2 mmol/L (3.5-5.1); Sodium 138 mmol/L (136-145); Total Protein 7.1 gm/dl (6.0-8.3)
[2023-11-17 03:08] LABS: Troponin I High Sensitivity 11.6 pg/ml (0-14)
[2023-11-17 03:17] LABS: Thyroid Stimulating Hormone 1.727 uIu/ml (0.300-4.500)
--- NOTE | 2023-11-17 08:58 | CT Scan Report ---
HEAD CT NONCONTRAST CT DOSE: 580.53 mGy.cm HISTORY: Altered mental status. TECHNIQUE: Multiaxial CT images of the head were performed without the use of intravenous contrast. A utomated exposure control was utilized for this study. A dose lowering technique was utilized adheri ng to the principles of ALARA. Comparison: Head CT 07/22/2020. Findings: The paranasal sinuses and mastoid air cells are clear. The calvarium and skull base are int act. The ventricles and sulci are within normal limits. There is no mass, hematoma, midline shift, or acute infarct. Impression: No acute intracranial abnormality. ACT 112: Negative or not required by law. Electronically signed by: Maurisio Avila M.D. 11/17/2023 8:57 AM
[2023-11-17 09:36] LABS: Acetaminophen < 3 ug/ml (10-30); Salicylate < 3.0 mg/dl (3.0-30)
--- NOTE | 2023-11-17 09:49 | History & Physical Report ---
Date of Service November 17, 2023 Assessment & Plan (1) Generalized anxiety disorder with panic attacks: Plan: Admitted to the hospital after having a panic attack At the heart of her anxiety is the saftey of her son, having previuosly lost another son through gun shot She said her son was taking out trash late last night, so she became concerned for his safety and then went into a panic attack Of note, she is prescribed Clonazepam, Mirtazapine, Quetiapine by a Psych doctorr, however, she is not compliant with those meds (2) Diabetes type 2, controlled: Plan: Blood glucose has been under good control Patient has lost a lot of weight over the past few years Has continuous glucose monitoring with DexCom Plan Monitor overnight, await evaluation from Psych History of Present Illness Chief Complaint: Anxiety Primary Care Provider: Sabiha Morillo DO This is a 63-year-old female with a history of type 2 diabetes 80 who presents to the hospital today on account of same anxiety, refusal to eat and drink. She had the same presentation last week, for which she came to the ER. She was doing well since discharge until last night when she was brought to the hospital again by the . Upon further questioning, she said her anxiety was triggered when she found out that her son was taking out the trash late at night. She was worried for his safety, because she had lost a son previously when he was shot by the police. Another source of her anxiety seems to be her health. She is Diabetic and has been able to keep her blood glucose under control with weight loss and continuous glucose monitoring meter. Here in the ER, her vital signs were wnl, CBC, BMP were also wnl. According to the , patient follows up with a behavioral pediatrician, courtney, she annaleesol complies with her medication regimen. Allergies Allergy/AdvReac Type Severity Reaction Status Date / Time No Known Allergies Allergy Verified 11/09/23 00:39 Home Medications Medication Instructions Recorded Confirmed Type blood sugar diagnostic (OneTouch 01/15/21 11/09/23 History Verio test strips) blood-glucose meter,continuous 01/15/21 11/09/23 History (Dexcom G6 Office Services Representative) blood-glucose sensor (Dexcom G6 #9 ea 02/11/21 11/09/23 Rx Sensor device) blood-glucose transmitter (Dexcom #1 ea 02/11/21 11/09/23 Rx G6 Transmitter device) clonazepam 0.5 mg tablet 0.5 mg PO UD PRN Anxiety 11/09/23 11/09/23 History mirtazapine 7.5 mg tablet 7.5 mg PO HS 11/09/23 11/09/23 History quetiapine 25 mg tablet 25 mg PO HS 11/09/23 11/09/23 History trazodone 50 mg tablet 100 mg PO HS 11/09/23 11/09/23 History Past Med/Surg History Problem List (Updated 11/17/23 @ 09:45 by Manuel Salinas MD) Generalized anxiety disorder with panic attacks Hypokalemia (Acute) Dehydration (Acute) Anxiety (Acute) Insomnia (Acute) Colon cancer screening Anxiety and depression Diabetes type 2, controlled Medical History Prediabetes NO MEDS History of depression History of anxiety History of COVID-19 05/2020>RESOLVED Surgical History History of tooth extraction Family History Sister Diabetes had gestational DM, then type 1 DM thereafter Father , in his 70s Heart disease Mother Pacemaker Other No family history of adverse response to anesthesia Social History Smoking Status: Never smoker Second Hand Exposure: No; Hx Alcohol Use: Yes Hx Substance Use: No Preferred Language: Divehi Communication Ability: Effective Agronomy Manager Required: No Beliefs That Will Affect Care: None marital status: Current Living Situation: Spouse current occupational status: retired current occupation: [employer] Officer How many Children do You have: 4 other: originally from [place]; came to [facility] in 1986 Feels Safe at Home: Yes Assistive Devices: Glasses Review of Systems Review of Systems: All systems reviewed are negative, apart from the ones contained in the history. Physical Exam Physical Exam: The patient is awake, alert and oriented 3, well developed and well nourished, normocephalic and atraumatic, lying in bed and in no acute distress. HEENT--PERRL, EOMI, mucous membranes and oropharynx mildly dry Neck--supple. No JVD. No bruits. Thyroid normal, trachea midline, no adenopathy. Heart--normal S1 and S2. No murmurs, rubs or gallops. Lungs--clear bilaterally, no respiratory distress, no accessory muscle use. Abdomen--normal bowel sounds and soft. Extremities--no cyanosis or clubbing. No edema. Dermatologic--normal skin turgor, normal color, no abnormal lymph nodes, no rash. Neurologic--cranial nerves II through XII grossly intact. Rheumatologic--normal range of motion. Psychiatric--normal affect. Results & Data Results & Data Vital Signs (Past 12 Hours) Vital Signs Temp Pulse Pulse Resp BP BP Pulse Ox 11/17/23 09:31 85 17 138/76 98 11/17/23 07:00 84 17 145/81 H 100 11/17/23 06:03 79 18 141/88 H 100 11/17/23 05:52 79 11/17/23 05:00 89 19 155/84 H 98 11/17/23 03:33 81 16 116/67 95 11/17/23 03:09 84 15 134/74 92 11/17/23 02:16 90 27 H 159/86 H 97 11/17/23 02:00 99 H 23 159/86 H 97 11/17/23 01:51 104 H 11/17/23 01:49 173/97 H 11/17/23 00:58 97.7 F 121 H 28 H 155/90 H 98 O2 Del Method 11/17/23 09:31 Room Air 11/17/23 07:00 Room Air 11/17/23 06:03 11/17/23 05:52 11/17/23 05:00 11/17/23 03:33 11/17/23 03:09 11/17/23 02:16 Room Air 11/17/23 02:00 11/17/23 01:51 11/17/23 01:49 11/17/23 00:58 Room Air PG Care Time/CCT Total # of Minutes Spent Total Time Spent with Patient: Total time spent is greater than 50% in coordination of care (as documented) at patient's floor/unit and/or counseling patient: Coding Level of Care Code 20683 INT INP/OBS CARE 3/75MIN Diagnoses Generalized anxiety disorder with panic attacks F41.1; F41.0 Diabetes type 2, controlled E11.9 Time Spent (min) 75
[2023-11-17 10:35] LABS: Appearance Urine Clear (Clear); Bacteria Urine Automated None Seen (None Seen); Bilirubin Urine Negative (Negative); Blood Urine Negative (Negative); Cast Urine Automated 0-2 /lpf (0-2); Color Urine Yellow; Glucose Urine UA Negative (Negative); Ketones Urine Trace (Negative); Leukocyte Esterase Urine 2+ (Negative); Nitrite Urine Negative (Negative); Protein Urine Negative (Negative); RBC Urine Automated 0-2 /hpf (0-2); Specific Gravity Urine 1.007 (1.000-1.030); Urobilinogen Urine Negative (Negative); pH Urine 7.5 (4.5-7.5)
[2023-11-17 11:24] LABS: Amphetamines+Metham, Urine Neg (Neg); Barbiturates, Urine Neg (Neg); Benzodiazepine, Urine Neg (Neg); Cocaine, Urine Neg (Neg); Fentanyl, Urine Neg (Neg); MDMA (Ecstacy), Urine Neg (Neg); Marijuana, Urine Neg (Neg); Methadone, Urine Neg (Neg); Opiate, Urine Neg (Neg); Phencyclidine, Urine Neg (Neg)
[2023-11-17] MEDS: POTASSIUM CHLORIDE CRTAB 20 MEQ TABCR PO STA (11:51)
[2023-11-17] MEDS ORDERED: clonazePAM 0.5 MG TAB PO PRN (14:42)
[2023-11-17] MEDS ORDERED: MELATONIN 3 MG TAB PO PRN (14:43)
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
[2023-11-17] MEDS ORDERED: QUEtiapine FUMARATE 25 MG TABLET PO SCH (21:00)
[2023-11-17] MEDS: QUEtiapine FUMARATE 25 MG TABLET PO SCH (21:51)
[2023-11-17] MEDS: MIRTAZAPINE TAB 15 MG TAB PO SCH (21:52)
[2023-11-18] MEDS: LORazepam 1 MG TAB PO PRN (04:37)
[2023-11-18] MEDS: SERTRALINE HCL 50 MG TABLET PO SCH (10:30)
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
[2023-11-18] MEDS: MELATONIN 3 MG TAB PO SCH (21:29)
--- NOTE | 2023-11-19 05:27 | Electrocardiogram Report ---
Test Reason : Blood Pressure : */* mmHG Vent. Rate : 106 BPM Atrial Rate : 106 BPM P-R Int : 150 ms QRS Dur : 76 ms QT Int : 362 ms P-R-T Axes : 50 -16 52 degrees QTcB Int : 480 ms Sinus tachycardia Minimal voltage criteria for LVH, may be normal variant ( R in aVL ) Prolonged QT When compared with ECG of 22-Jul-2020 16:17, Vent. rate has increased by 40 bpm QT has lengthened Confirmed by Antonio Alfonso ([id number]) on 11/19/2023 5:27:02 AM Referred By: REFERRED SELF Confirmed By: Antonio Alfonso
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
[2023-11-19] MEDS: clonazePAM 1 MG TAB PO SCH (21:55)
[2023-11-20 07:53] LABS: Hematocrit (blood only) 37.9 % (37.0-47.0); Hemoglobin 13.3 g/dl (12.0-16.0); Mean Corpuscular Hemoglobin 30.6 pg (25.0-34.0); Mean Corpuscular Hgb Conc 35.1 g/dL (32.0-36.0); Mean Corpuscular Volume 87.3 fL (80.0-100.0); Mean Platelet Volume 10.2 fL (9.4-12.4); Platelet Count 197 K/uL (130-400); RDW Coefficient of Variation 12.3 % (11.5-14.5); RDW Standard Deviation 39.8 fL (36.4-46.3); Red Blood Count 4.34 M/uL (4.20-5.40); White Blood Count 3.03 K/ul (4.8-10.8)
[2023-11-20 08:08] LABS: BUN Creatinine Ratio 14.1 (10-20); Calcium 8.8 mg/dl (8.6-10.3); Creatinine Clr Calc Pharmacy 91.9 ml/min; Est GFR (African American) 109.3 ml/min; Est GFR (Non-African American) 94.3 ml/min; Potassium 3.6 mmol/L (3.5-5.1)
[2023-11-20] MEDS: clonazePAM 0.5 MG TAB PO SCH (09:11)
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
--- NOTE | 2023-11-20 14:58 | Psychiatric Progress Note ---
Date of Service November 20, 2023 Impression / Recommendations Impression patient is a 63-year-old female history of generalized anxiety disorder with panic attacks who presents with recent insomnia, loss of appetite, anxiety symptoms in the context of financial and family stressors. Chart review shows patient developed panic attacks after losing her son due to gunshots. ER visit 1 week ago with a similar circumstance. Psychiatry consulted for evaluation. Patient's anxiety is improved with improved sleep, appetite, self expression. She is tolerating the clonazepam well. She was counseled about major depression importance of medication adherence and future plan. She was advised to engage in stress management techniques and was agreeable. She reports wanting to leave soon. For a mental health perspective she appears stable and can be managed on an outpatient basis. No acute safety concerns and does not currently need inpatient psychiatric care. Overall, I spent a total of 45 minutes with this case including review of chart records, nursing report, review of lab work, direct evaluation of the patient at bedside, counseling the patient, discussion of the patient with the hospitalist provider, discussion with the psychiatric liaison during clinical rounds, and documentation in the electronic health record. (1) Generalized anxiety disorder with panic attacks: (2) MDD (major depressive disorder), recurrent episode, moderate: (3) Poor fluid intake: Plan -Continue Clonazepam 1mg HS, 0.5mg QAM -Continue Sertraline -Continue Mirtazapine, Quetiapine -Continue Lorazepam 1mg Q6hr PRN for anxiety, insomnia -Case management to assist with psychiatry follow-up appointment (patient has outpatient provider already and would benefit from assistance) Interval History Identifying Information patient is a 63-year-old female history of generalized anxiety disorder with panic attacks who presents with recent insomnia, loss of appetite, anxiety symptoms in the context of financial and family stressors. Chart review shows patient developed panic attacks after losing her son due to gunshots. ER visit 1 week ago with a similar circumstance. Psychiatry consulted for evaluation. Chief Complaint "better" Subjective Subjective Patient reports feeling better. She is eating and is more conversational today. Reports sleeping 6 hours and feeling rested. Says she feels like the medication was a lot. She was hesitant to take her morning clonazepam. We discussed her reservations about medications, depression, stress management. She is worried about a dosing increase. I explained to her the plan for how the clonazepam and sleep medications are temporary and she reliant on her antidepressant for future improvement. She cites the past major depressive episode in 2020. At that time she was not started on a full dose of an antidepressant and received sleep medication and anxiety medication for improvement. She reports the depression subsided and returned recently. 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 We discussed stress management and reducing responsibilities during this acute phase for self-care and improvement of symptoms; she is agreeable. Physical Exam Mental Examination Eye Contact: Maintains Eye Contact Motor Behavior: Unremarkable Speech: Normal Mood: Euthymic Affect: Anxious and Nervous Thought Process: Intact and Linear Thought Content: Intact Hallucinations: None Insight: Poor (improved) Judgement: Poor (improved) Vital Signs (Past 24 Hours) Last Vital Signs Temp 36.6 C 11/20/23 07:14 Pulse 90 11/20/23 07:14 Resp 18 11/20/23 07:14 BP 111/69 11/20/23 07:14 Pulse Ox 100 11/20/23 07:14 O2 Del Method Room Air 11/20/23 08:00 Results & Data ([facility]) Laboratory Results Laboratory Results - last 24 hr 11/20/23 07:06 WBC 3.03 L RBC 4.34 Hgb 13.3 Hct 37.9 MCV 87.3 MCH 30.6 MCHC 35.1 RDW Std Deviation 39.8 RDW Coeff of Peter 12.3 Plt Count 197 MPV 10.2 Sodium 139 Potassium 3.6 Chloride 106 Carbon Dioxide 26 Anion Gap 7 BUN 9 Creatinine 0.64 Est Cr Clr Drug Dosing 91.9 Est GFR ( Amer) 109.3 Est GFR (Non-Af Amer) 94.3 BUN/Creatinine Ratio 14.1 Glucose 117 H Calcium 8.8 Current Inpatient Medications Current Inpatient Medications: Current Inpatient Medications Clonazepam (Clonazepam 1 Mg Tab) 1 mg PO HS GLORIA Stop: 12/19/23 20:59 Last Admin: 11/19/23 21:55 Dose: 1 mg Clonazepam (Clonazepam 0.5 Mg Tab) 0.5 mg PO DAILY GLORIA Stop: 12/20/23 08:59 Last Admin: 11/20/23 09:11 Dose: 0.5 mg Lorazepam (Lorazepam 1 Mg Tab) 1 mg PO Q6H PRN PRN Reason: Anxiety/Agitation Stop: 12/17/23 17:07 Last Admin: 11/18/23 04:37 Dose: 1 mg Melatonin (Melatonin 3 Mg Tab) 6 mg PO [facility] Stop: 12/18/23 20:59 Last Admin: 11/19/23 21:54 Dose: 6 mg Mirtazapine (Mirtazapine Tab 15 Mg Tab) 7.5 mg PO GLORIA Stop: 12/17/23 20:59 Last Admin: 11/19/23 21:54 Dose: 7.5 mg Quetiapine Fumarate (Quetiapine Fumarate 25 Mg Tablet) 50 mg PO [facility]ORIA Stop: 12/17/23 20:59 Last Admin: 11/19/23 21:53 Dose: 50 mg Sertraline HCl (Sertraline Hcl 50 Mg Tablet) 50 mg PO [facility] Stop: 12/18/23 08:59 Last Admin: 11/20/23 09:01 Dose: 50 mg
[2023-11-21 09:02] VITALS: BP 122/77; RESP 16; TEMP 97.3; O2SAT 97
--- NOTE | 2023-11-21 10:51 | Discharge Summary ---
Date of Service November 21, 2023 Admission HPI Per Admitting Provider This is a 63-year-old female with a history of type 2 diabetes 80 who presents to the hospital today on account of same anxiety, refusal to eat and drink. She had the same presentation last week, for which she came to the ER. She was doing well since discharge until last night when she was brought to the hospital again by the . Upon further questioning, she said her anxiety was triggered when she found out that her son was taking out the trash late at night. She was worried for his safety, because she had lost a son previously when he was shot by the police. Another source of her anxiety seems to be her health. She is Diabetic and has been able to keep her blood glucose under control with weight loss and continuous glucose monitoring meter. Here in the ER, her vital signs were wnl, CBC, BMP were also wnl. According to the , patient follows up with a air quality instrument specialist, courtney, she aaron complies with her medication regimen. Admission Exam (Per Admitting) Constitutional The patient is awake, alert and oriented 3, well developed and well nourished, normocephalic and atraumatic, lying in bed and in no acute distress. HEENT--PERRL, EOMI, mucous membranes and oropharynx mildly dry Neck--supple. No JVD. No bruits. Thyroid normal, trachea midline, no adenopathy. Heart--normal S1 and S2. No murmurs, rubs or gallops. Lungs--clear bilaterally, no respiratory distress, no accessory muscle use. Abdomen--normal bowel sounds and soft. Extremities--no cyanosis or clubbing. No edema. Dermatologic--normal skin turgor, normal color, no abnormal lymph nodes, no rash. Neurologic--cranial nerves II through XII grossly intact. Rheumatologic--normal range of motion. Psychiatric--normal affect. Discharge Data Consultations 11/17/23 08:37 ED Decision to Admit Stat 11/17/23 11:39 Consult Psychiatry Routine Hospital Course (1) Generalized anxiety disorder with panic attacks: Admitted to the hospital after having a panic attack At the heart of her anxiety is the safety of her son, having previously lost another son through gun shot Of note, she is prescribed Clonazepam, Mirtazapine, Quetiapine by a Psych doctor, however, she is not compliant with those meds Here in the hospital, psychiatry was consulted and his recommendations are appreciated. Currently on clonazepam 1 mg at night and 0.5 mg in the morning, sertraline 50 mg in the morning, mirtazapine 7.5 mg close of quetiapine 50 mg Patient doing a lot better. Will discharge her home on the current regimen of blood milligram at night, clonazepam 0.5 mg in the morning, 50 mg in the morning, mirtazapine 7.5 mg daily and also quetiapine 50 mg daily (2) Diabetes type 2, controlled: Blood glucose has been under good control Patient has lost a lot of weight over the past few years Has continuous glucose monitoring with DexCom Plan Discharge home, active follow-up with regular PCP Coding Level of Care Code 77868 INP/OBS DISCH >30 MIN Diagnoses Generalized anxiety disorder with panic attacks F41.1; F41.0 Diabetes type 2, controlled E11.9 Time Spent (min) 35
[2023-11-21 12:42] VITALS: PULSE 97
== END 2023-11-21 13:26 | disposition home or self-care (01) | DRG 880 ==
LOC: ED 00:52 → EDINP 08:42 → 3E 11:15